=== PATIENT | female | born 1950 | race Caucasian/White ===

== ENCOUNTER → 2017-10-29 | Outpatient (CLI) | payer OTHER ==
[~2017-10-29] MED LIST: ASPCH81X PO; CHOL1000 PO; CMD5 PO; ESCI1TAB10 PO; FLUT0.15 NAE; MELATAB2 PO; MRLP17X PO; MULT-845 PO; NVLG SC; ROPI3TAB PO; SUMA100T15 PO; VNTHFA/IN INH; pain pump XX
--- NOTE | 2017-10-29 16:13 | DIAGNOSTIC IMAGING REPORT ---
LEFT KNEE 2 VIEWS HISTORY: LEFT KNEE PAIN COMPARISON: None. FINDINGS: There is no fracture or dislocation. Soft tissues are unremarkable. No radiopaque foreign bodies. No knee effusion. Mild cartilage space narrowing within the medial compartment of the left knee with small marginal osteophytes. IMPRESSION: No fractures. Mild osteoarthritis within the medial compartment. Electronically signed by: Kaden Billingsley M.D. 10/29/2017 4:12 PM Dictated Date/Time: 10/29/2017 4:09 PM
== END | disposition home or self-care (01) ==
LOC: C.RADBC 15:28
PROVIDERS: ATTEND Physician Assistant Medical
DX: M17.12 Unilateral primary osteoarthritis, left knee (principal)

== ENCOUNTER → 2017-12-30 | Day surgery (SDC) | payer OTHER ==
[2017-12-14 07:56] VITALS: Ht 160 cm; Wt 84.1 kg
[2017-12-15 12:37] LABS: BASO % 0.5 %; BASO ABS # 0.03 K/uL (0-0.2); EOS % 1.5 %; EOS ABS # 0.09 K/uL (0-0.5); HEMATOCRIT 36.5 % (37-47); HEMOGLOBIN 11.7 g/dL (12.0-16.0); IG# 0.01 K/uL (0.00-0.02); LYMPH % 36.1 %; LYMPH ABS # 2.13 K/uL (1.2-3.4); MEAN CELL VOLUME 92.6 fL (80-100); MEAN CORPUSCULAR HEMOGLOBIN 29.7 pg (25-34); MEAN CORPUSCULAR HGB CONC 32.1 g/dl (32-36); MEAN PLATELET VOLUME 10.3 fL (7.4-10.4); MONO ABS # 0.59 K/uL (0.11-0.59); NEUT % 51.7 %; NEUT ABS # 3.05 K/uL (1.4-6.5); PLATELET COUNT 254 K/uL (130-400); RED CELL DISTRIBUTION WIDTH SD 47.5 fL (36.4-46.3)
[2017-12-15 13:27] LABS: CALCIUM 9.1 mg/dl (8.5-10.1); CREATININE 0.84 mg/dl (0.60-1.20); POTASSIUM 4.3 mmol/L (3.5-5.1)
[~2017-12-30] VITALS: Ht 160 cm; Wt 84.1 kg
[~2017-12-30] MED LIST changes: +ATOR10TA82 PO; +CEFAZOLIN 2000MG IV PUSH 10 ML IV SCH; -CMD5 PO; +DEXAMETHASONE SOD INJ 4 MG/ML VIAL ONE; -ESCI1TAB10 PO; +EpHEDrine SULFATE INJ 50 MG/ML AMP IV PRN; +EpINEphrine INJ 1MG/ML AMP 1 MG/ML AMP ONE; +FENTANYL CITRATE INJ 50 MCG/1 ML 2 ML VIAL ONE; +HYDR-5688 PO; +HYDROCODONE/ACETAMOPHEN 5/325MG TAB PO PRN; +HYDROmorphone INJ 1 MG/ML SYR IV PRN; +INSDGI SC; +KETOROLAC TROMETHAMINE 30 MG/ML VIAL ONE; +LACTATED RINGER'S 1000ML 1,000 ML IV SCH; +LIDOCAINE HCL 2% 2 ML VIAL (20MG/ML) ONE; +LIFI5DRO OPB; +LISI-461 PO; +MAGN1TAB41 PO; +METF-384 PO; +MIDAZOLAM HCL 1 MG/ML 2ML VIAL ONE; -MRLP17X PO; +OMEP20TA PO; +ONDANSETRON INJ 2 MG/ML 2 ML VIAL IV PRN; +ONDANSETRON INJ 2 MG/ML 2 ML VIAL ONE; +POLY335019 PO; +PROPOFOL IV EMULSION 10 MG/ML 20 ML VIAL IV ONE; +ROPIVACAINE 0.5% 5 MG/ML 30 ML VIAL ONE; +SODIUM CHLORIDE 0.9% 1000ML 1,000 ML IV SCH; -SUMA100T15 PO; +SUMA100T16 PO; +TIMO0.5S2 OPB; +WARF5TAB7 PO
[2017-12-30 07:55] LABS: PTT PATIENT 23.3 SECONDS (21.0-31.0)
--- NOTE | 2017-12-30 08:02 | History & Physical Bridge Note ---
H&P Re-Evaluation Bridge Note: I have examined the patient, reviewed the History & Physical and in the interval since the performance of the History & Physical I have noted the following changes of clinical significance: No changes noted
--- NOTE | 2017-12-30 08:45 | [facility] Post Operative Brief Note ---
Immediate Operative Summary Operative Date Dec 30, 2017. Pre-Operative Diagnosis Torn Medial Meniscus Left Knee Post-Operative Diagnosis None Procedure(s) Performed Left Knee Arthroscopy, Partial Medial Meniscectomy, Chondroplasty Surgeon Dr. Ty Young Apartment Leasing Manager Surgeon(s) Lucinda Dickson PA-C Estimated Blood Loss 5 cc Findings Consistent with Post-Op Diagnosis Specimens None Anesthesia Type General Complication(s) none Disposition Disposition: Recovery Room / PACU
--- NOTE | 2017-12-30 08:53 | Discharge Instructions-SurgCtr ---
Discharge Instructions Date of Service Dec 30, 2017. Visit Reason for Visit: Left Knee Current Tear Medial Cartilage;M25.562 Discharge Discharge Diagnosis / Problem: SAME ABOVE Discharge Goals Goal(s): Decrease discomfort, Improve function Medications Stopped Medications Name(s): metformin last dose wednesday and coumadin stopped 12/24 Restart Stopped Medication(s): MAY RESTART 12/30/2017 Activity Recommendations Activity Limitations: as noted below Lifting Limitations: gradually increase as tolerated Exercise/Sports Limitations: gradually increase as tolerated Driving or Machine Use: resume 1 day after discharge Anesthesia . Post Anesthesia Instructions: If you have had General Anesthesia or IV Sedation: * Do not drive today. * Resume driving when surgeon permits. * Do not make important decisions or sign legal documents today. * Call surgeon for: 1. Temperature elevations greater than 101 degrees F. 2. Uncontrollable pain. 3. Excessive bleeding. 4. Persistent nausea and vomiting. 5. Medication intolerance (nausea, vomiting or rash). * For nausea and vomiting use only clear liquids such as: tea, soda, bouillon until nausea subsides, then gradually increase diet as tolerated. * If you have any concerns or questions, call your surgeon's office. If physician is unavailable and it is an emergency, call 911 or go to the nearest emergency room. . Instructions / Follow-Up Instructions / Follow-Up MEDICATIONS: * Resume previous medications unless instructed otherwise by your surgeon. * Always take pain medication on a full stomach or with food to avoid upset stomach. * Do not drink alcohol or drive while taking narcotics. * Ibuprofen or Tylenol may be taken if narcotic not needed. SPECIAL CARE INSTRUCTIONS: __ None _X_ Keep extremity elevated and iced x 48 hours; apply ice 20-30 minutes 8-10 times/day. May remove at night. _X_ Crutches _X_ May discard when able __ Brace/Post-op shoe __ 24 hrs/day __ Remove at night _X_ Dressing __ Maintain until seen in office, may shower with plastic over site _X_ Remove dressings in 24-48 hours and then may shower _X_ Cover incisions with band-aids after showering __ Do not remove steri-strips Call physician if chills or temperature rises above 102 degrees or pain unrelieved by prescribed pain medications. Office [phone] Diet Recommendations Home Diet: no limitations Procedures Procedures Performed: Left Knee Arthroscopy, Partial Medial Meniscectomy, Chondroplasty Pending Studies Studies pending at discharge: no Medical Emergencies . Who to Call and When: Medical Emergencies: If at any time you feel your situation is an emergency, please call 911 immediately. . Non-Emergent Contact Non-Emergency issues call your: Primary Care Provider Call Non-Emergent contact if: you have a fever, temperature is above 101.5 . . "Provider Documentation" section prepared by Benjamin Dickson. .
--- NOTE | 2017-12-30 08:55 | OPERATIVE REPORT ---
DATE OF OPERATION: 12/30/2017 PREOPERATIVE DIAGNOSES: Medial meniscal tear and osteoarthritis of the left knee. POSTOPERATIVE DIAGNOSES: Same. PROCEDURE: Left knee diagnostic arthroscopy with partial medial meniscectomy and medial chondroplasty. SURGEON: Dr. Edil Young. AIRCRAFT ENGINE INSTALLER: Charles Dickson PA-C, whose assistance was necessary for positioning of the leg and helping with instrumentation and closure. ANESTHESIA: General. COMPLICATIONS: None. CONDITION: Stable to PACU. INDICATIONS: Tanner is a pleasant 67-year-old female who has been having a 3-month history of left knee pain. She twisted her knee and all of her pain was located along the medial joint line. She is unable to have an MRI because of a pacemaker. After 3 months of conservative treatment, she elected to proceed with arthroscopy. DESCRIPTION OF PROCEDURE: On 12/30/2017, she arrived at [facility] for the above procedure. She was seen in the preoperative holding area and the operative extremity was identified and signed. She was given a preoperative antibiotic and taken back to the operating room, laid on the table in supine position and put under general anesthesia. The left knee was then prepped and draped in sterile fashion. Time-out was done and the patient's operative extremity was properly identified. A scope was introduced into the lateral parapatellar portal. Diagnostic arthroscopy showed some grade 3 chondral changes of the distal medial femoral condyle. The tibia looked okay. There was a horizontal tear of the medial meniscus. It was a kind of flipped underneath itself. A medial parapatellar portal was made under direct visualization. A shaver and a biter were used to remove the inferior flap of the horizontal tear. The meniscus was probed and felt to be stable. A chondroplasty was done of any of the loose cartilage fragments of the distal medial femoral condyle. The scope was then brought into the trochlea. ACL and PCL were intact. The scope was brought into the lateral compartment. There was no meniscus or cartilage damage laterally. The knee was brought into extension and the trochlea and the patella were intact. The patella tracked in the center of the trochlea. The scope was then placed in the medial parapatellar portal. Repeat diagnostic arthroscopy showed no additional pathology. Arthroscopic instruments were removed from the knee. Portal sites were closed with 3-0 nylon. The knee was then injected with 30 mL of Marcaine with Toradol and morphine. She was then taken to the postanesthesia care unit in stable condition. She tolerated the procedure well. I attest to the content of the Intraoperative Record and any orders documented therein. Any exception s are noted below.
[2017-12-30] MEDS: FENTANYL CITRATE INJ 50 MCG/1 ML 2 ML VIAL IV PRN ×3 (09:25→09:40)
[2017-12-30 09:58] VITALS: TEMP 36.8
--- NOTE | 2017-12-30 10:39 | Anesthesia Progress Nt - [facility] ---
Anesthesia Post Op Note Date & Time Dec 30, 2017 at 10:39 Vital Signs Pain Intensity: 5.0 Vital Signs Past 12 Hours Date Time Temp Pulse Resp B/P (MAP) Pulse Ox O2 Delivery O2 Flow Rate FiO2 12/30/17 09:58 36.8 64 20 153/75 (101) 95 Room Air 12/30/17 09:56 131/82 12/30/17 09:52 63 21 90 12/30/17 09:52 62 21 12/30/17 09:51 153/75 12/30/17 09:48 62 21 99 12/30/17 09:48 62 21 12/30/17 09:47 36.6 60 12 153/75 93 Room Air 12/30/17 09:46 128/115 12/30/17 09:43 66 17 100 12/30/17 09:43 63 17 12/30/17 09:41 146/74 12/30/17 09:38 69 20 96 12/30/17 09:38 71 20 12/30/17 09:36 133/81 12/30/17 09:33 66 14 99 12/30/17 09:33 65 14 12/30/17 09:32 143/67 12/30/17 09:28 63 14 12/30/17 09:28 65 14 92 12/30/17 09:26 140/61 12/30/17 09:23 64 15 12/30/17 09:23 64 15 95 12/30/17 09:21 138/58 12/30/17 09:18 68 20 12/30/17 09:18 69 20 96 12/30/17 09:16 149/74 12/30/17 09:13 66 19 12/30/17 09:13 67 19 97 12/30/17 09:12 142/125 12/30/17 09:08 68 15 12/30/17 09:08 67 15 95 12/30/17 09:07 127/86 12/30/17 09:03 58 14 12/30/17 09:03 58 14 97 12/30/17 09:01 123/64 12/30/17 08:58 59 17 12/30/17 08:58 60 17 97 12/30/17 08:56 123/66 12/30/17 08:53 60 15 12/30/17 08:53 60 15 96 12/30/17 08:52 59 15 12/30/17 08:52 58 15 96 12/30/17 08:51 126/70 12/30/17 08:48 129/70 12/30/17 08:47 36.2 62 16 129/70 95 Mask 6 12/30/17 07:14 37.0 59 20 159/69 (99) 95 Room Air Notes Mental Status: alert / awake / arousable, participated in evaluation Pt Amnestic to Procedure: Yes Nausea / Vomiting: adequately controlled Pain: adequately controlled Airway Patency, RR, SpO2: stable & adequate BP & HR: stable & adequate Hydration State: stable & adequate Anesthetic Complications: no major complications apparent
[2017-12-30 10:43] VITALS: BP 123/69; PULSE 67; O2SAT 96
== END | disposition home or self-care (01) ==
LOC: X.SURG 06:50
PROVIDERS: ATTEND Orthopaedic Surgery
DX: S83.242A Other tear of medial meniscus, current injury, left knee, initial encounter (principal); X50.1XXA Overexertion from prolonged static or awkward postures, initial encounter; M06.9 Rheumatoid arthritis, unspecified

== ENCOUNTER → 2018-03-02 | Outpatient (CLI) | payer OTHER ==
[~2018-03-02] MED LIST changes: -CEFAZOLIN 2000MG IV PUSH 10 ML IV SCH; -DEXAMETHASONE SOD INJ 4 MG/ML VIAL ONE; -EpHEDrine SULFATE INJ 50 MG/ML AMP IV PRN; -EpINEphrine INJ 1MG/ML AMP 1 MG/ML AMP ONE; -FENTANYL CITRATE INJ 50 MCG/1 ML 2 ML VIAL ONE; -HYDROCODONE/ACETAMOPHEN 5/325MG TAB PO PRN; -HYDROmorphone INJ 1 MG/ML SYR IV PRN; -KETOROLAC TROMETHAMINE 30 MG/ML VIAL ONE; -LACTATED RINGER'S 1000ML 1,000 ML IV SCH; -LIDOCAINE HCL 2% 2 ML VIAL (20MG/ML) ONE; -MIDAZOLAM HCL 1 MG/ML 2ML VIAL ONE; -ONDANSETRON INJ 2 MG/ML 2 ML VIAL IV PRN; -ONDANSETRON INJ 2 MG/ML 2 ML VIAL ONE; -PROPOFOL IV EMULSION 10 MG/ML 20 ML VIAL IV ONE; -ROPI3TAB PO; -ROPIVACAINE 0.5% 5 MG/ML 30 ML VIAL ONE; -SODIUM CHLORIDE 0.9% 1000ML 1,000 ML IV SCH
[2018-03-02 08:28] LABS: PTT PATIENT 23.2 SECONDS (21.0-31.0)
== END | disposition home or self-care (01) ==
LOC: C.LAB 08:02
PROVIDERS: ATTEND Physician Assistant
DX: Z01.812 Encounter for preprocedural laboratory examination (principal); M46.1 Sacroiliitis, not elsewhere classified

== ENCOUNTER → 2018-04-09 | Outpatient (CLI) | payer OTHER ==
[2018-04-09 13:24] LABS: CREATININE 0.93 mg/dl (0.60-1.20)
== END | disposition home or self-care (01) ==
LOC: C.LAB 12:34
PROVIDERS: ATTEND Radiology Diagnostic Radiology
DX: Z01.812 Encounter for preprocedural laboratory examination (principal)

== ENCOUNTER → 2018-04-11 | Outpatient (CLI) | payer OTHER ==
[~2018-04-11] MED LIST changes: +GADAVIST IV PRN
--- NOTE | 2018-04-11 14:13 | DIAGNOSTIC IMAGING REPORT ---
MRI OF THE LUMBAR SPINE WITH AND WITHOUT CONTRAST CLINICAL HISTORY: Post laminectomy syndrome. Low back pain radiating into left lower extremity. COMPARISON STUDY: Lumbar spine MRI August 23, 2014. TECHNIQUE: Utilizing a 1.5 Milana magnet and dedicated coil, multiplanar, multiecho imaging of the lumbar spine was performed before and after uneventful IV administration of 8.5 mL of Gadavist. FINDINGS: For purposes of numbering on this exam, the L5-S1 disc space is assigned to axial image 28 of 37. The patient is status post L2-S1 fusion and laminectomy. Postoperative appearance is unchanged as MRI of August 23, 2014. No compression fracture is present. Discogenic changes at the L1-L2 level are again noted. There is no intracanalicular mass or fluid collection. There is no abnormal enhancement within the lumbar canal. The conus terminates at the mid L1 level. Paravertebral soft tissues are unremarkable. L1-2: Small broad-based disc bulge is noted. This results in mild central canal narrowing. This is unchanged since MRI of August 23, 2014. The neural foramen are patent. L2-3: The central canal and neural foramen are patent. L3-4: The central canal and right neural foramen are patent. Mild left foraminal narrowing due to ill-defined enhancing soft tissue is unchanged since MRI of November 22, 2014. L4-5: Central canal neural foramen are patent. L5-S1: The central canal and neural foramen are patent. IMPRESSION: 1. No change since previous exam of August 23, 2014. 2. Status post posterior decompression and fusion from L2 through S1. 3. No change in a small disc bulge at L1-L2 that results in mild central canal narrowing. 4. Ill-defined area of soft tissue enhancement within the left L3-L4 neural foramen is unchanged. This likely reflects scar tissue. Electronically signed by: Reynaldo Pena M.D. 04/11/2018 2:11 PM Dictated Date/Time: 04/11/2018 2:01 PM
== END | disposition home or self-care (01) ==
LOC: C.MRIBC 12:41
PROVIDERS: ATTEND Physician Assistant
DX: M96.1 Postlaminectomy syndrome, not elsewhere classified (principal); Z98.1 Arthrodesis status

== ENCOUNTER → 2018-04-21 | Outpatient (CLI) | payer OTHER ==
[~2018-04-21] MED LIST changes: -GADAVIST IV PRN
== END | disposition home or self-care (01) ==
LOC: C.LAB 08:00
PROVIDERS: ATTEND Physician Assistant
DX: Z01.812 Encounter for preprocedural laboratory examination (principal); Z79.01 Long term (current) use of anticoagulants

== ENCOUNTER 2020-07-08 23:48 | Observation (INO) ==
[2020-07-09] MEDS ORDERED: SODIUM CHLORIDE 0.9% 1000ML 1,000 ML IV ONE (00:19)
[2020-07-09] MEDS ORDERED: ONDANSETRON INJ 2 MG/ML 2 ML VIAL IV STA ×2 (00:19→03:05)
--- NOTE | 2020-07-09 00:36 | Emergency Department Note ---
History of Present Illness General Chief complaint: Illness Stated complaint: SICK,CLAMMY,SWEATY,RESTLESS Time Seen by Provider: 07/09/20 00:04 Source: patient Mode of arrival: ambulatory Limitations: no limitations History of Present Illness Provider complaint: nausea, vomiting, UTI symptoms Maximum Pain Intensity: 0 Associated symptoms: + fever/chills, + loss of appetite, + malaise and + nausea/vomiting; no shortness of breath and no syncope Treatments prior to arrival: none This is a 70-year-old female who presents with nausea/vomiting, dysuria, fatigue, and fevers. Patient states several days ago she began noticing slight discomfort with urination and darker colored urine and was concerned for an evolving urinary tract infection. Patient states she began drinking increased water and cranberry juice. Patient states she is continued to feel worse with fatigue, subjective fevers and chills, poor appetite, and today began having nausea and vomiting. Patient denies chest pain or trouble breathing. Patient denies any known sick contacts. Patient denies any contact with any coronavirus positive individual. who lives with her has not been sick. Patient does admit to back pain, however states she has chronic back pain from multiple surgeries and an indwelling pain pump, and feels her pain is not any worse than her normal. Patient denies any falls or injury, no change in bowel movements. Patient denies any swelling in her legs. Patient states she has had UTIs prior, however they are not a frequent or recurrent problem. Pt seen during a time of high acuity and national emergency pandemic while wearing PPE. Home Medications Home Medications Medication Instructions Recorded Confirmed Type albuterol sulfate 90 mcg/actuation 2 puffs INH Q4 PRN 09/02/18 07/09/20 History aerosol inhaler aspirin 81 mg tablet,delayed 81 mg PO DAILY 09/02/18 07/09/20 History release atorvastatin 10 mg tablet 10 mg PO DAILY 09/02/18 07/09/20 History cholecalciferol (vitamin D3) 25 5,000 units PO DAILY 09/02/18 07/09/20 History mcg (1,000 unit) capsule insulin aspart U-100 100 unit/mL See Rx Instructions .ROUTE 09/02/18 07/09/20 History subcutaneous cartridge .COMPLEX ml insulin glargine 100 unit/mL (3 14 units SQ HS ml 09/02/18 07/09/20 History mL) subcutaneous pen lifitegrast 5 % eye drops in a 1 drops OPB BID ea 09/02/18 07/09/20 History dropperette lisinopril 10 mg tablet 10 mg PO DAILY 09/02/18 07/09/20 History magnesium oxide 400 mg PO DAILY cap 09/02/18 07/09/20 History metformin 1,000 mg tablet 1,000 mg PO BID 09/02/18 07/09/20 History multivitamin 1 cap PO DAILY 09/02/18 07/09/20 History omeprazole 20 mg capsule,delayed 20 mg PO DAILY 09/02/18 07/09/20 History release polyethylene glycol 3350 17 17 gm PO DAILY gm 09/02/18 07/09/20 History gram/dose oral powder sumatriptan succinate 100 mg tablet 100 mg PO .use as directed PRN tab 09/02/18 07/09/20 History timolol maleate 0.5 % once daily 1 drops OPL QAM ml 09/02/18 07/09/20 History eye drops warfarin 5 mg tablet 2.5 - 5 mg PO QPM tab 09/02/18 07/09/20 History Synchromed Pump Refill See Rx Instructions .ROUTE .COMPLEX 07/09/20 07/09/20 History artifi.tears(hypromellose)(PF) 1 drp OPHTHALMIC (EYE) QID PRN 07/09/20 07/09/20 History escitalopram oxalate 20 mg PO DAILY 07/09/20 07/09/20 History prednisolone acetate 1 drp OPR QID 07/09/20 07/09/20 History promethazine 25 mg PO Q6 PRN 07/09/20 07/09/20 History Allergies Allergy/AdvReac Type Severity Reaction Status Date / Time atropine Allergy Mild ITCHING Verified 07/09/20 02:15 AND HIVES Sulfa (Sulfonamide Allergy Mild MODERATE Verified 07/09/20 02:15 Antibiotics) RASH nickel Allergy Unknown RASH Verified 07/09/20 02:15 naloxone AdvReac Intermediate N/V, Verified 07/09/20 02:15 HALLUCINATIONS, EXTREME ANXIETY,JAW CLENCHING Past Med/Surg History Medical History Cervical postlaminectomy syndrome (Chronic) Chronic pain of left knee (Chronic) Depression (Chronic) Lumbar postlaminectomy syndrome (Chronic) Migraine (Chronic) Monoclonal paraproteinemia (Chronic) "MGUS" Presence of intrathecal pump (Chronic) Primary central sleep apnea (Chronic) Pulmonary embolism (Resolved) Retinal vascular disorder (Chronic 01/29/12) Sacroiliitis (Chronic) Severe dizziness (Resolved) SOB (shortness of breath) (Resolved) Surgical History H/O colonoscopy (Resolved) H/O cystoscopy (Resolved) H/O elbow surgery (Resolved) H/O eye surgery (Resolved) History of carpal tunnel surgery (Resolved) History of hysterectomy (Resolved) S/P cervical spinal fusion (Resolved) S/P cholecystectomy (Resolved) S/P lumbar laminectomy (Resolved) Family History (Updated 07/09/20 @ 15:13 by Blas Loja DO) Father Coronary heart disease Social History Smoking Status: Never smoker Hx Alcohol Use: Yes (1-2x/month) Alcohol type: wine Hx Substance Use: No Preferred Language: Czech Communication Ability: Effective Sight Mounter Required: No Beliefs That Will Affect Care: None marital status: Current Living Situation: Spouse Other Information That Helps Us Care for You: No Feels Safe at Home: Yes Safety Concerns: Feels Safe At This Time Review of Systems See HPI for pertinent positives & negatives. and A total of 10 systems reviewed and were otherwise negative Physical Exam Vital Signs Vital Signs - 24 hr 07/08/20 23:52 07/09/20 01:06 07/09/20 01:08 Temperature 36.5 C Temperature Source Oral Pulse Rate 82 73 69 Pulse Rate from SpO2 Sensor 80 70 Respiratory Rate 20 14 15 Respiratory Effort / Characteristics Non-Labored Spontaneous Respiratory Depth Normal Blood Pressure 160/75 H 118/56 L Blood Pressure Mean 103 82 Pulse Oximetry 94 97 97 Oxygen Delivery Method Room Air Sepsis Recent Fever Within 48 Hours No Sepsis New/Unexplained Change in Mental Status No Sepsis Action Taken by Nursing No Action Required 07/09/20 01:15 07/09/20 01:30 07/09/20 01:31 Temperature Temperature Source Pulse Rate 73 70 72 Pulse Rate from SpO2 Sensor 70 72 Respiratory Rate 17 21 17 Respiratory Effort / Characteristics Respiratory Depth Blood Pressure 127/60 Blood Pressure Mean 67 Pulse Oximetry 96 97 Oxygen Delivery Method Room Air Sepsis Recent Fever Within 48 Hours Sepsis New/Unexplained Change in Mental Status Sepsis Action Taken by Nursing 07/09/20 02:03 07/09/20 02:04 07/09/20 02:05 Temperature Temperature Source Pulse Rate 83 79 80 Pulse Rate from SpO2 Sensor 78 81 Respiratory Rate 13 17 17 Respiratory Effort / Characteristics Respiratory Depth Blood Pressure 138/54 L Blood Pressure Mean 71 Pulse Oximetry 92 95 Oxygen Delivery Method Sepsis Recent Fever Within 48 Hours Sepsis New/Unexplained Change in Mental Status Sepsis Action Taken by Nursing 07/09/20 02:15 07/09/20 02:30 07/09/20 02:31 Temperature Temperature Source Pulse Rate 74 74 75 Pulse Rate from SpO2 Sensor 75 75 73 Respiratory Rate 20 14 14 Respiratory Effort / Characteristics Respiratory Depth Blood Pressure 141/69 H Blood Pressure Mean 96 Pulse Oximetry 93 90 91 Oxygen Delivery Method Sepsis Recent Fever Within 48 Hours Sepsis New/Unexplained Change in Mental Status Sepsis Action Taken by Nursing 07/09/20 02:45 07/09/20 03:02 07/09/20 03:03 Temperature Temperature Source Pulse Rate 80 83 80 Pulse Rate from SpO2 Sensor 80 86 80 Respiratory Rate 18 16 17 Respiratory Effort / Characteristics Respiratory Depth Blood Pressure 150/71 H Blood Pressure Mean 81 Pulse Oximetry 93 92 91 Oxygen Delivery Method Sepsis Recent Fever Within 48 Hours Sepsis New/Unexplained Change in Mental Status Sepsis Action Taken by Nursing 07/09/20 03:30 07/09/20 04:00 07/09/20 04:01 Temperature Temperature Source Pulse Rate 74 73 74 Pulse Rate from SpO2 Sensor 73 73 74 Respiratory Rate 16 16 17 Respiratory Effort / Characteristics Respiratory Depth Blood Pressure 130/66 150/70 H Blood Pressure Mean 90 113 Pulse Oximetry 99 97 97 Oxygen Delivery Method Room Air Sepsis Recent Fever Within 48 Hours Sepsis New/Unexplained Change in Mental Status Sepsis Action Taken by Nursing 07/09/20 04:15 07/09/20 04:30 07/09/20 04:31 Temperature Temperature Source Pulse Rate 73 72 77 Pulse Rate from SpO2 Sensor 73 72 76 Respiratory Rate 16 24 19 Respiratory Effort / Characteristics Respiratory Depth Blood Pressure 137/70 Blood Pressure Mean 105 Pulse Oximetry 96 97 97 Oxygen Delivery Method Sepsis Recent Fever Within 48 Hours Sepsis New/Unexplained Change in Mental Status Sepsis Action Taken by Nursing 07/09/20 04:45 07/09/20 05:00 07/09/20 05:01 Temperature Temperature Source Pulse Rate 80 69 69 Pulse Rate from SpO2 Sensor 80 69 69 Respiratory Rate 12 20 16 Respiratory Effort / Characteristics Respiratory Depth Blood Pressure 137/67 Blood Pressure Mean 90 Pulse Oximetry 100 98 98 Oxygen Delivery Method Sepsis Recent Fever Within 48 Hours Sepsis New/Unexplained Change in Mental Status Sepsis Action Taken by Nursing GENERAL: alert, ill appearing, well nourished, no distress, non-toxic EYE EXAM: normal conjunctiva, PERRL and EOM's grossly intact OROPHARYNX: no exudate, no erythema, lips, buccal mucosa, and tongue normal and mucous membranes are moist NECK: supple, no nuchal rigidity, no adenopathy, non-tender LUNGS: Clear to auscultation. Normal chest wall mechanics, no w/r/r HEART: no murmurs, S1 normal and S2 normal ABDOMEN: abdomen soft, non-tender, normo-active bowel sounds, no masses, no rebound or guarding. BACK: Back is symmetrical on inspection and there is no deformity, no midline tenderness, no CVA tenderness. SKIN: no rashes and no bruising UPPER EXTREMITIES: upper extremities are grossly normal. FROM, nml pulses b/l. LOWER EXTREMITIES: No pitting edema. FROM, nml pulses b/l. NEURO EXAM: Normal sensorium, cranial nerves II-XII grossly intact, normal speech, no gross weakness of arms, no gross weakness of legs. Gross sensation intact. Course Course 0250: Pt and updated on results. In agreement with plan for additional inpatient monitoring. Of note, pt does intermittently drop sats to 88%. With coaching to take a few deep breaths, she recovers to the low to mid 90's. Denies feeling SOB. No increased WOB. 0400: Case discussed with Dr. Ramires. He would like additional coronavirus testing. Administered Medications Aspirin (Ecotrin Ectab) 81 mg PO DAILY [facility] Stop: 08/08/20 08:59 Last Admin: 07/09/20 09:01 Dose: 81 mg Documented by: [id number] Atorvastatin Calcium (Lipitor) 10 mg PO DAILY [facility] Stop: 08/08/20 08:59 Last Admin: 07/09/20 09:01 Dose: 10 mg Documented by: [id number] Escitalopram Oxalate (Lexapro Tab) 20 mg PO DAILY [facility] Stop: 08/08/20 08:59 Last Admin: 07/09/20 09:01 Dose: 20 mg Documented by: [id number] Sodium Chloride (Nss 1000ml) 1,000 mls @ 125 mls/hr IV .Q8H [facility] Stop: 08/08/20 08:00 Last Admin: 07/09/20 18:10 Dose: 125 mls/hr Documented by: [id number] Infusion: 07/09/20 16:58 Dose: 125 mls/hr Documented by: [id number] Admin: 07/09/20 08:58 Dose: 125 mls/hr Documented by: [id number] Ceftriaxone Sodium 2,000 mg/ (Dextrose) 70 mls @ 100 mls/hr IV DAILY [facility]; Protocol Stop: 07/16/20 08:59 Last Infusion: 07/09/20 09:42 Dose: 0 mls/hr Documented by: [id number] Admin: 07/09/20 08:59 Dose: 100 mls/hr Documented by: [id number] Doxycycline Hyclate 100 mg/ (Dextrose) 110 mls @ 50 mls/hr IV Q12H [facility] Stop: 07/16/20 08:59 Last Admin: 07/09/20 20:53 Dose: 50 mls/hr Documented by: [id number] Infusion: 07/09/20 11:15 Dose: 0 mls/hr Documented by: [id number] Admin: 07/09/20 08:59 Dose: 50 mls/hr Documented by: [id number] Insulin Aspart (Novolog Flexpen) 0 units SC ACHS [facility] Stop: 08/08/20 08:00 Last Admin: 07/09/20 20:55 Dose: Not Given Documented by: [id number] Cosigned by: [id number] Admin: 07/09/20 17:10 Dose: 2 units Documented by: [id number] Cosigned by: [id number] Admin: 07/09/20 13:03 Dose: 4 units Documented by: [id number] Cosigned by: [id number] Admin: 07/09/20 08:59 Dose: 4 units Documented by: [id number] Cosigned by: [id number] Insulin Glargine (Lantus Solostar Pen) 14 units SQ HS [facility] Stop: 08/08/20 20:59 Last Admin: 07/09/20 20:54 Dose: 14 units Documented by: [id number] Cosigned by: [id number] Lisinopril (Zestril) 10 mg PO DAILY [facility] Stop: 08/08/20 08:59 Last Admin: 07/09/20 09:00 Dose: 10 mg Documented by: [id number] Magnesium Oxide (Mag-Ox) 400 mg PO DAILY [facility] Stop: 08/08/20 08:59 Last Admin: 07/09/20 09:01 Dose: 400 mg Documented by: [id number] Miscellaneous (Order Awaiting Action) 1 ea N/A QS [facility] Stop: 08/08/20 15:59 Last Admin: 07/09/20 15:32 Dose: Not Given Documented by: [id number] Multivitamins (Multivitamin Tab) 1 tab PO QAM [facility] Stop: 08/08/20 08:59 Last Admin: 07/09/20 09:01 Dose: 1 tab Documented by: [id number] Nitroglycerin (Nitrostat) 0.4 mg SL PRN PRN PRN Reason: Chest Pain Stop: 08/08/20 10:10 Last Admin: 07/09/20 17:08 Dose: 0.4 mg Documented by: [id number] Nitroglycerin (Nitro-Bid 2%) 0.5 inch EXT Q6H [facility] Stop: 08/08/20 15:59 Last Admin: 07/09/20 21:00 Dose: 0.5 inch Documented by: [id number] Admin: 07/09/20 15:32 Dose: 0.5 inch Documented by: [id number] Ondansetron HCl (Zofran) 4 mg IV Q6H PRN PRN Reason: Nausea Stop: 08/08/20 08:00 Last Admin: 07/09/20 09:55 Dose: 4 mg Documented by: [id number] Pantoprazole Sodium (Protonix) 40 mg PO DAILY [facility] Stop: 08/08/20 08:59 Last Admin: 07/09/20 09:01 Dose: 40 mg Documented by: [id number] Polyethylene Glycol (Miralax Powder Packet) 17 gm PO DAILY [facility] Stop: 08/08/20 08:59 Last Admin: 07/09/20 09:00 Dose: 17 gm Documented by: [id number] Prednisolone Acetate (Pred Forte 1%) 1 drops OP QID [facility] Stop: 08/08/20 12:59 Last Admin: 07/09/20 20:55 Dose: 1 drops Documented by: [id number] Admin: 07/09/20 17:08 Dose: 1 drops Documented by: [id number] Admin: 07/09/20 13:04 Dose: 1 drops Documented by: [id number] Timolol Maleate (Timoptic 0.5% Oph) 1 drops OPL QAM [facility] Stop: 08/08/20 08:59 Last Admin: 07/09/20 09:01 Dose: 1 drops Documented by: [id number] Vitamin D (Vitamin D3) 5,000 units PO DAILY [facility] Stop: 08/08/20 08:59 Last Admin: 07/09/20 09:00 Dose: 5,000 units Documented by: [id number] Discontinued Medications Sodium Chloride (Nss 1000ml) 1,000 mls @ 999 mls/hr IV .Q1H1M ONE Stop: 07/09/20 01:19 Last Infusion: 07/09/20 02:05 Dose: 0 mls/hr Documented by: [id number] Admin: 07/09/20 01:03 Dose: 999 mls/hr Documented by: [id number] Cefepime HCl (Maxipime) 2,000 mg in 20 mls @ 5 mls/min IV NOW STA Stop: 07/09/20 02:05 Last Admin: 07/09/20 02:16 Dose: 5 mls/min Documented by: [id number] Sodium Chloride (Nss 1000ml) 1,000 mls @ 250 mls/hr IV .Q4H [facility] Stop: 08/08/20 02:29 Last Admin: 07/09/20 08:03 Dose: Not Given Documented by: [id number] Infusion: 07/09/20 06:46 Dose: 0 mls/hr Documented by: [id number] Admin: 07/09/20 02:44 Dose: 250 mls/hr Documented by: [id number] Acetaminophen (Ofirmev) 1,000 mg in 100 mls @ 400 mls/hr IV NOW STA Stop: 07/09/20 06:31 Last Infusion: 07/09/20 06:46 Dose: 0 mls/hr Documented by: [id number] Admin: 07/09/20 06:24 Dose: 400 mls/hr Documented by: [id number] Prochlorperazine (Compazine) 1 mls @ 1 mls/min IV ONE ONE Stop: 07/09/20 06:18 Last Admin: 07/09/20 06:24 Dose: 1 mls/min Documented by: [id number] Lorazepam (Ativan) 0.25 mg in 0.5 mls @ 0.5 mls/min IV NOW STA Stop: 07/09/20 06:18 Last Admin: 07/09/20 06:23 Dose: 0.5 mls/min Documented by: [id number] Phytonadione 2.5 mg/ Sodium (Chloride) 50.25 mls @ 100.5 mls/hr IV ONE ONE Stop: 07/09/20 17:14 Last Infusion: 07/09/20 18:10 Dose: 0 mls/hr Documented by: [id number] Admin: 07/09/20 17:07 Dose: 100.5 mls/hr Documented by: [id number] Ioversol (Optiray 320 100ml) 100 ml IV ONCE ONE Stop: 07/09/20 02:13 Last Admin: 07/09/20 02:13 Dose: 93 ml Documented by: [id number] Metoprolol Tartrate (Lopressor) 25 mg PO ONE ONE Stop: 07/09/20 15:26 Last Admin: 07/09/20 15:45 Dose: 25 mg Documented by: [id number] Morphine Sulfate (Morphine Sulfate) 2 mg IV ONE ONE Stop: 07/09/20 10:12 Last Admin: 07/09/20 10:21 Dose: 2 mg Documented by: [id number] Nitroglycerin (Nitrostat) 0.3 mg SL ONE STA Stop: 07/09/20 14:51 Last Admin: 07/09/20 15:02 Dose: 0.3 mg Documented by: [id number] Ondansetron HCl (Zofran) 4 mg IV NOW STA Stop: 07/09/20 00:20 Last Admin: 07/09/20 01:03 Dose: 4 mg Documented by: [id number] Ondansetron HCl (Zofran) 4 mg IV NOW STA Stop: 07/09/20 03:06 Last Admin: 07/09/20 03:07 Dose: 4 mg Documented by: [id number] Medical Decision Making Differential Diagnosis Gastroenteritis, food borne illness, infections, appendicitis, diverticulitis, inflammatory bowel disease, obstruction, GI bleed, biliary pathology, volvulus, UTI, pyelonephritis, sepsis as well as other pathologies. Medical Records Attestation: I reviewed the patient's medical records. Home Medications Current Medication List: was personally reviewed by me Laboratory Data Attestation: I reviewed the patient's lab results. Result diagrams: 07/09/20 00:54 07/09/20 00:54 Lab Results 07/09/20 07/09/20 07/09/20 Range/Units 00:54 00:54 00:54 WBC 9.83 (4.8-10.8) K/uL RBC 3.95 L (4.2-5.4) M/uL Hgb 10.9 L (12.0-16.0) g/dL Hct 33.1 L (37-47) % MCV 83.8 (80-100) fL MCH 27.6 (25-34) pg MCHC 32.9 (32-36) g/dL RDW Std Deviation 51.5 H (36.4-46.3) fL RDW Coeff of Angela 16.7 H (11.5-14.5) % Plt Count 442 H (130-400) K/uL MPV 9.6 (7.4-10.4) fL Immature Gran % (Auto) 0.4 % Neut % (Auto) 74.9 % Lymph % (Auto) 18.3 % Hardin % (Auto) 5.4 % Eos % (Auto) 0.8 % Baso % (Auto) 0.2 % Neut # (Auto) 7.36 H (1.4-6.5) K/uL Lymph # (Auto) 1.80 (1.2-3.4) K/uL Hardin # (Auto) 0.53 (0.11-0.59) K/uL Eos # (Auto) 0.08 (0-0.5) K/uL Baso # (Auto) 0.02 (0-0.2) K/uL Immature Gran # (Auto) 0.04 H (0.00-0.02) K/uL PT Cancelled INR Cancelled APTT Cancelled PTT Ratio Cancelled Sodium 136 (136-145) mmol/L Potassium 3.5 (3.5-5.1) mmol/L Chloride 102 (98-107) mmol/L Carbon Dioxide 29 (21-32) mmol/L Anion Gap 5.0 (3-11) BUN 11 (7-18) mg/dl Creatinine 0.84 (0.6-1.2) mg/dl Est Cr Clr Drug Dosing 62.8 ml/min Est GFR ( Amer) 81.0 Est GFR (Non-Af Amer) 69.9 BUN/Creatinine Ratio 12.8 (10-20) Glucose 111 H (70-99) mg/dl Lactate (0.4-2.0) mmol/L Calcium 9.3 (8.5-10.1) mg/dl Magnesium 1.9 (1.8-2.4) mg/dl Total Bilirubin 0.5 (0.2-1) mg/dl AST 52 H (15-37) U/L ALT 63 (12-78) U/L Alkaline Phosphatase 235 H (45-117) U/L Troponin I < 0.015 (0-0.045) ng/ml Total Protein 8.4 H (6.4-8.2) gm/dl Albumin 2.9 L (3.4-5.0) gm/dl Globulin 5.5 H (2.5-4.0) gm/dl Albumin/Globulin Ratio 0.5 L (0.9-2) Procalcitonin (0-0.5) ng/ml Urine Color Urine Appearance (Clear) Urine pH (4.5-7.5) Ur Specific [place] (1.000-1.030) Urine Protein (Negative) Urine Glucose (UA) (Negative) Urine Ketones (Negative) Urine Blood (Negative) Urine Nitrite (Negative) Urine Bilirubin (Negative) Urine Urobilinogen (Negative) Ur Leukocyte Esterase (Negative) Urine WBC (Auto) (0-5) /hpf Urine RBC (Auto) (0-4) /hpf U Hyaline Cast (Auto) (0-5) /lpf U Epithel Cells (Auto) (0-5) /lpf Urine Bacteria (Auto) (Negative) Urine Mucus (None Prsent) COVID-19 Eval Order COVID-19 PCR (Negative) 07/09/20 07/09/20 07/09/20 Range/Units 00:54 00:54 01:19 WBC (4.8-10.8) K/uL RBC (4.2-5.4) M/uL Hgb (12.0-16.0) g/dL Hct (37-47) % MCV (80-100) fL MCH (25-34) pg MCHC (32-36) g/dL RDW Std Deviation (36.4-46.3) fL RDW Coeff of Angela (11.5-14.5) % Plt Count (130-400) K/uL MPV (7.4-10.4) fL Immature Gran % (Auto) % Neut % (Auto) % Lymph % (Auto) % Hardin % (Auto) % Eos % (Auto) % Baso % (Auto) % Neut # (Auto) (1.4-6.5) K/uL Lymph # (Auto) (1.2-3.4) K/uL Hardin # (Auto) (0.11-0.59) K/uL Eos # (Auto) (0-0.5) K/uL Baso # (Auto) (0-0.2) K/uL Immature Gran # (Auto) (0.00-0.02) K/uL PT INR APTT PTT Ratio Sodium (136-145) mmol/L Potassium (3.5-5.1) mmol/L Chloride (98-107) mmol/L Carbon Dioxide (21-32) mmol/L Anion Gap (3-11) BUN (7-18) mg/dl Creatinine (0.6-1.2) mg/dl Est Cr Clr Drug Dosing ml/min Est GFR ( Amer) Est GFR (Non-Af Amer) BUN/Creatinine Ratio (10-20) Glucose (70-99) mg/dl Lactate 0.9 (0.4-2.0) mmol/L Calcium (8.5-10.1) mg/dl Magnesium (1.8-2.4) mg/dl Total Bilirubin (0.2-1) mg/dl AST (15-37) U/L ALT (12-78) U/L Alkaline Phosphatase (45-117) U/L Troponin I (0-0.045) ng/ml Total Protein (6.4-8.2) gm/dl Albumin (3.4-5.0) gm/dl Globulin (2.5-4.0) gm/dl Albumin/Globulin Ratio (0.9-2) Procalcitonin 0.24 (0-0.5) ng/ml Urine Color Dark Yellow Urine Appearance Cloudy A (Clear) Urine pH 7.5 (4.5-7.5) Ur Specific [place] 1.025 (1.000-1.030) Urine Protein Negative (Negative) Urine Glucose (UA) Negative (Negative) Urine Ketones Trace H (Negative) Urine Blood Negative (Negative) Urine Nitrite Negative (Negative) Urine Bilirubin Negative (Negative) Urine Urobilinogen Negative (Negative) Ur Leukocyte Esterase 1+ H (Negative) Urine WBC (Auto) 1-5 (0-5) /hpf Urine RBC (Auto) 0-4 (0-4) /hpf U Hyaline Cast (Auto) 0 (0-5) /lpf U Epithel Cells (Auto) >30 H (0-5) /lpf Urine Bacteria (Auto) Negative (Negative) Urine Mucus Present A (None Prsent) COVID-19 Eval Order COVID-19 PCR (Negative) 07/09/20 07/09/20 07/09/20 Range/Units 02:15 04:30 04:30 WBC (4.8-10.8) K/uL RBC (4.2-5.4) M/uL Hgb (12.0-16.0) g/dL Hct (37-47) % MCV (80-100) fL MCH (25-34) pg MCHC (32-36) g/dL RDW Std Deviation (36.4-46.3) fL RDW Coeff of Angela (11.5-14.5) % Plt Count (130-400) K/uL MPV (7.4-10.4) fL Immature Gran % (Auto) % Neut % (Auto) % Lymph % (Auto) % Hardin % (Auto) % Eos % (Auto) % Baso % (Auto) % Neut # (Auto) (1.4-6.5) K/uL Lymph # (Auto) (1.2-3.4) K/uL Hardin # (Auto) (0.11-0.59) K/uL Eos # (Auto) (0-0.5) K/uL Baso # (Auto) (0-0.2) K/uL Immature Gran # (Auto) (0.00-0.02) K/uL PT 49.2 H INR 5.1 H APTT 60.4 H* PTT Ratio 2.2 Sodium (136-145) mmol/L Potassium (3.5-5.1) mmol/L Chloride (98-107) mmol/L Carbon Dioxide (21-32) mmol/L Anion Gap (3-11) BUN (7-18) mg/dl Creatinine (0.6-1.2) mg/dl Est Cr Clr Drug Dosing ml/min Est GFR ( Amer) Est GFR (Non-Af Amer) BUN/Creatinine Ratio (10-20) Glucose (70-99) mg/dl Lactate (0.4-2.0) mmol/L Calcium (8.5-10.1) mg/dl Magnesium (1.8-2.4) mg/dl Total Bilirubin (0.2-1) mg/dl AST (15-37) U/L ALT (12-78) U/L Alkaline Phosphatase (45-117) U/L Troponin I (0-0.045) ng/ml Total Protein (6.4-8.2) gm/dl Albumin (3.4-5.0) gm/dl Globulin (2.5-4.0) gm/dl Albumin/Globulin Ratio (0.9-2) Procalcitonin (0-0.5) ng/ml Urine Color Urine Appearance (Clear) Urine pH (4.5-7.5) Ur Specific [place] (1.000-1.030) Urine Protein (Negative) Urine Glucose (UA) (Negative) Urine Ketones (Negative) Urine Blood (Negative) Urine Nitrite (Negative) Urine Bilirubin (Negative) Urine Urobilinogen (Negative) Ur Leukocyte Esterase (Negative) Urine WBC (Auto) (0-5) /hpf Urine RBC (Auto) (0-4) /hpf U Hyaline Cast (Auto) (0-5) /lpf U Epithel Cells (Auto) (0-5) /lpf Urine Bacteria (Auto) (Negative) Urine Mucus (None Prsent) COVID-19 Eval Order Covid19 Done at [facility] COVID-19 PCR NEGATIVE (Negative) Imaging Data My Impression: X-ray: I interpreted the following studies. Chest: A single view study of the chest was reviewed and was negative for cardiomegaly, effusion, pulmonary edema, or wide mediastinum. Right lower lobe infiltrate noted. Radiologist's Impression: CT abdomen pelvis with contrast: Comparison to August 04, 2009. Mild cardiomegaly. Lung bases are clear. Mild fatty infiltration of the liver. No focal liver lesion is seen. There is mild biliary duct dilatation post cholecystectomy with a common bile duct measuring 12 mm. The pancreas, spleen, adrenal glands, and kidneys appear unremarkable. Bowel loops are nondilated. No pneumoperitoneum, free fluid, or focal inflammatory changes are seen involving the bowel. The urinary bladder is empty and appears unremarkable. There is a baclofen pump projecting over the right lower pelvis. There is extensive surgical change post instrumentation and fusion from L2 through the sacrum. Hardware appears intact. There are moderate to severe degenerative changes in the lower thoracic and upper lumbar spine. Radiologist: Bg Orellana MD Blood Pressure Blood Pressure Findings: Elevated blood pressure MDM Narrative This is a 70-year-old female who presents from home after feeling worse over the last 3 days. Patient initially suspicious for urinary tract infection. Patient was ill-appearing on arrival although hemodynamically stable. Patient found to have likely pneumonia on chest x-ray, labs reassuring and CT abdomen pelvis unremarkable. Patient's UA not strongly suggestive of urinary tract infection although was slightly suboptimal due to epithelial cell contamination. Culture sent for blood and urine is precaution. Patient's lactic acid and procalcitonin reassuring. Patient was hydrated here and did appear improved although did still feel nauseated and did have recurrent vomiting. Patient was given several rounds of antiemetics. Patient was noted to be intermittently dipping her oxyge n saturations into the upper 80s. Due to concern for this and no prior pulmonary history as well as likely pneumonia on chest x-ray, case discussed with the hospitalist for additional evaluation management. Patient was initially started on IV cefepime. While patient does have vomiting, she has no prior history of dysphasia or aspiration I feel aspiration is less likely. Patient denies any recent sick contacts, no known coronavirus exposure. In discussion with the hospitalist they would like an in-house coronavirus test as a precaution. Patient's INR supratherapeutic, despite her history of PE I feel PE less likely due to INR. I do not suspect acute cardiac pathology including ACS or CHF. Patient was aware of all results and was in agreement with plan. Patient continued to be hydrated here. An order was placed for continuous cardiac monitoring. The monitor shows a rate of _78_ with normal sinus rhythm. Impression & Plan Pneumonia, Hypoxia, Supratherapeutic INR, Anemia Discharge Plan Visit Data *Final* Discharge Date/Time: 07/09/20 06:36 Chief Complaint: Illness Stated Complaint: SICK,CLAMMY,SWEATY,RESTLESS ED Provider: Nella Garcia Discharge Problem: Pneumonia, Hypoxia, Supratherapeutic INR, Anemia Patient Disposition: Admitted As Inpatient Discharge Instructions Interventions: ED Discharge Assessment Last Done: 07/09/20 06:36 Discharge Problem: Pneumonia Qualifiers: Pneumonia type: due to unspecified organism Laterality: right Lung location: lower lobe of lung Qualified Code(s): J18.9 - Pneumonia, unspecified organism Anemia Qualifiers: Anemia type: unspecified type Qualified Code(s): D64.9 - Anemia, unspecified
[2020-07-09 01:05] LABS: Basophils # (auto) 0.02 K/uL (0-0.2); Basophils % (auto) 0.2 %; Eosinophils # (auto) 0.08 K/uL (0-0.5); Eosinophils % (auto) 0.8 %; Hematocrit (blood only) 33.1 % (37-47); Hemoglobin 10.9 g/dL (12.0-16.0); Immature Granulocytes # (auto) 0.04 K/uL (0.00-0.02); Immature Granulocytes % (auto) 0.4 %; Lymphocytes % (auto) 18.3 %; Mean Corpuscular Hemoglobin 27.6 pg (25-34); Mean Corpuscular Hgb Conc 32.9 g/dL (32-36); Mean Corpuscular Volume 83.8 fL (80-100); Mean Platelet Volume 9.6 fL (7.4-10.4); Monocytes # (auto) 0.53 K/uL (0.11-0.59); Monocytes % (auto) 5.4 %; Neutrophils # (auto) 7.36 K/uL (1.4-6.5); Neutrophils % (auto) 74.9 %; Platelet Count 442 K/uL (130-400); RDW Coefficient of Variation 16.7 % (11.5-14.5); RDW Standard Deviation 51.5 fL (36.4-46.3); Red Blood Count 3.95 M/uL (4.2-5.4); White Blood Count 9.83 K/uL (4.8-10.8)
[2020-07-09 01:21] LABS: Appearance Urine Cloudy (Clear); Bacteria Urine Automated Negative (Negative); Blood Urine Negative (Negative); Color Urine Dark Yellow; Epithelial Cell Urine Auto >30 /lpf (0-5); Glucose Urine UA Negative (Negative); Ketones Urine Trace (Negative); Leukocyte Esterase Urine 1+ (Negative); Nitrite Urine Negative (Negative); RBC Urine Automated 0-4 /hpf (0-4); Specific Gravity Urine 1.025 (1.000-1.030); Urobilinogen Urine Negative (Negative); pH Urine 7.5 (4.5-7.5)
[2020-07-09 01:30] LABS: Alanine Aminotransferase 63 U/L (12-78); Albumin Globulin Ratio 0.5 (0.9-2); Albumin Level 2.9 gm/dl (3.4-5.0); Alkaline Phosphatase 235 U/L (45-117); Aspartate Aminotransferase 52 U/L (15-37); BUN Creatinine Ratio 12.8 (10-20); Bilirubin,Total 0.5 mg/dl (0.2-1); Blood Urea Nitrogen 11 mg/dl (7-18); Calcium 9.3 mg/dl (8.5-10.1); Carbon Dioxide 29 mmol/L (21-32); Chloride 102 mmol/L (98-107); Creatinine Clr Calc Pharmacy 62.8 ml/min; Est GFR (Non-African American) 69.9; Globulin 5.5 gm/dl (2.5-4.0); Magnesium 1.9 mg/dl (1.8-2.4); Potassium 3.5 mmol/L (3.5-5.1); Sodium 136 mmol/L (136-145); Total Protein 8.4 gm/dl (6.4-8.2); Troponin I < 0.015 ng/ml (0-0.045)
[2020-07-09 01:32] LABS: Glucose 111 mg/dl (70-99)
[2020-07-09 01:37] LABS: Bilirubin Urine Negative (Negative); Ictotest Urine Negative (Negative); Protein Urine Negative (Negative); Sulfosalicylic Acid Urine Negative (Negative)
[2020-07-09 01:39] LABS: Cast Urine Automated 0 /lpf (0-5); Mucus Urine Present (None Prsent)
[2020-07-09] MEDS ORDERED: CEFEPIME 2,000 MG/20 ML VIAL IV STA (02:02)
[2020-07-09] MEDS ORDERED: IOVERSOL 100ml IV ONE (02:12)
[2020-07-09] MEDS: SODIUM CHLORIDE 0.9% 1000ML 1,000 ML IV SCH ×4 (02:44→18:10)
[2020-07-09 03:49] LABS: INR 5.1 (0.9-1.1); Partial Thromboplastin Ratio 2.2; Prothrombin Time 49.2 Seconds (9.0-12.0)
[2020-07-09 03:54] LABS: Partial Thromboplastin Time 60.4 Seconds (21.0-31.0)
[2020-07-09] MEDS ORDERED: LORazepam 0.25 MG/0.5 ML VIAL IV STA (06:17)
[2020-07-09] MEDS ORDERED: ACETAMINOPHEN 1,000 MG/100 ML VIAL IV STA (06:17)
[2020-07-09] MEDS ORDERED: PROCHLORPERAZINE 1 ML IV ONE (06:17)
--- NOTE | 2020-07-09 06:46 | History and Physical Report ---
DATE OF ADMISSION: 07/09/2020 CHIEF COMPLAINT: Nausea, vomiting and not feeling well. HISTORY OF PRESENT ILLNESS: This is a 70-year-old female with past medical history significant for type 2 diabetes, hypothyroidism, history of dyspnea, hypertension, GERD, vitamin D deficiency, history of L4-L5 herniated nucleus pulposus, carpal tunnel syndrome, cervical spondylosis, restless leg syndrome, acute angle closure glaucoma, cauda equina syndrome without mention of neurogenic bladder, thoracic and lumbosacral neuritis, retinal disorder, heterozygous for prothrombin mutation, monoclonal paraproteinemia, major depression, post laminectomy syndrome of lumbar region, primary central sleep apnea, history of pulmonary embolism, depression, presents with illness, not feeling well for the last few days. For the last 4 days, she is having urinary symptoms with increased frequency of urination, some pressure like feeling in the lower abdomen.Last night she felt very agitated and she was really nauseous and vomited 1 time at home and in the ER vomited 2 times. In the ER, she was slightly hypoxic, saturating 88% on room air, on 2 liters, she is saturating fine. Currently resting comfortably and hemodynamically stable. Denies any fever, chills, no cough, no shortness of breath but has chest pain in the left side of the chest radiating to back and the pain is more with the deep breath. She has some mild headaches, mild dizziness, mild blurred vision, no earache, no runny nose, no sore throat. No loss of sense of smell or taste. Appetite is not that great, but no dysphagia. No rash. No diarrhea or constipation, no blood in the stool or black stools. No swelling in the legs, no rash. Ambulates okay. ALLERGIES: ATROPINE, NALOXONE, SULFA ANTIBIOTICS, REGLAN, METOCLOPRAMIDE. PAST MEDICAL HISTORY: As mentioned above. PAST SURGICAL HISTORY: Carpal tunnel surgery, colonoscopy, elbow surgery, bilateral cataract surgery, lumbar laminectomy, laparoscopic cholecystectomy, multiple back surgeries, morphine pump in the back, bilateral blepharoplasty, cervical spine fusion surgery, shoulder surgery, total hysterectomy. MEDICATIONS: The patient is on atorvastatin 10 mg p.o. daily, lidocaine patch on and off, Coumadin 5 mg as directed, Lexapro 20 mg p.o. daily, metformin 1000 mg p.o. b.i.d., omeprazole 20 mg p.o. daily, insulin sliding scale, Phenergan 25 mg p.o. q. 6 hours p.r.n., lisinopril 10 mg p.o. daily, insulin glargine 16 units at bedtime, sumatriptan p.r.n., oxygen 2 liters through BiPAP while sleeping, Timoptic ophthalmic solution, Artificial Tears, ProAir 2 puffs every 4 hours p.r.n., aspirin enteric coated 81 mg p.o. daily, magnesium oxide 400 mg p.o. daily, vitamin D 5000 units daily, MiraLax daily, Centrum Silver 1 tablet daily. FAMILY HISTORY: Significant for mother had blood clot. Father had CABG and CVA. Son has ulcerative colitis. Father has diabetes, aunt has leukemia. Daughter has breast cancer. SOCIAL HISTORY: . No smoking, alcohol rare. No drug use. REVIEW OF SYMPTOMS: As per HPI. Rest of review of symptoms negative. PHYSICAL EXAMINATION: GENERAL: The patient is of moderate build, not in acute distress. VITAL SIGNS: Temperature 36.5, pulse 69, respiratory rate 16, blood pressure 137/67, oxygen 98% on room air. HEENT: No pallor, no icterus. Pupils equal, round, reactive to light. NECK: No JVD, no neck masses. CARDIOVASCULAR: S1, S2 heard, regular rate and rhythm, no murmur, no gallop. RESPIRATORY SYSTEM: Normal AP diameter. No accessory muscle use. No wheezing, no crackles. ABDOMEN: Soft, bowel sounds present, nontender. No distention. CENTRAL NERVOUS SYSTEM: Cranial nerves II-XII grossly intact. Nonfocal. EXTREMITIES: No edema, no erythema. LABORATORY DATA: WBC 9.8, hemoglobin 10.9, hematocrit 33.1, platelets 442. PT 49.2, INR 5.1, APTT 60.4. Sodium 136, potassium 3.5, chloride 102, bicarbonate 29, BUN 11, creatinine 0.8, serum glucose 111, lactate 0.9, calcium 9.3, magnesium 1.9, total bilirubin 0.5, AST 52, ALT 63, alkaline phosphatase 235. Troponin I less than 0.015. Procalcitonin 0.24. Urinalysis positive for leukocyte esterase. COVID-19 PCR pending. Chest x-ray, questionable right lower lobe infiltrate. CTA of abdomen and pelvis, mild fatty infiltration of the liver, baclofen pump placing over the right lower pelvis, no acute findings. EKG: Normal sinus rhythm, rate of 73, nonspecific T-wave abnormality seen. ASSESSMENT AND PLAN: A 70-year-old female who presents with not feeling well, nausea, vomiting and was mildly hypoxic in the ER. 1. Nausea, vomiting, lower abdominal discomfort, possibly from urinary tract infection. Follow the cultures. Empirically started on Rocephin, IV fluids. 2. Possible pneumonia and was slightly hypoxic in the ER with 88% on room, on 2 liters saturating fine. There is questionable right lower lobe infiltrate, treated with Rocephin and doxycycline. COVID Negative. Currently chest pain in the left side of the chest radiating to the back, more with deep breath, will follow serial enzymes. Follow the CT chest. 3. History of central sleep apnea: On BiPAP at bedtime. 4. History of pulmonary embolism, on Coumadin. INR is supratherapeutic at 5.1. We will hold Coumadin. Follow the inr. 5. Depression: On Lexapro. 6. Hypertension: On lisinopril. 7. Hyperlipidemia: On statin. 8. Diabetes: Continue home insulin Glargine, will place on insulin sliding scale. Hold metformin. Follow the blood sugars. 9. Chronic back pain, history of back surgeries: On pain pump. 10. History of hypothyroidism:Not On Synthroid medication. We will follow the TSH levels. 11. History of monoclonal paraproteinemia:Following with Heme/Onco.. 12. Deep venous thrombosis prophylaxis: Heparin subQ. DISPOSITION: Admit to med tele. Level 1 full code. Expect discharge home and follow with family doctor. MTDD
--- NOTE | 2020-07-09 06:49 | XRay Report ---
XR chest 1V portable CLINICAL HISTORY: SEPSIS dyspnea COMPARISON STUDY: 08/31/2016 FINDINGS: Mild cardiomegaly. Prominent pulmonary vasculature. Diaphragms are smooth. IMPRESSION: Cardiomegaly. Pulmonary vascular congestion. ACT 112: Negative or not required by law. The above report was generated using voice recognition software. It may contain grammatical, syntax or spelling errors. Electronically signed by: Joe Lynn M.D. 07/09/2020 6:48 AM
--- NOTE | 2020-07-09 07:47 | CT Scan Report ---
ABDOMEN AND PELVIS CT WITH IV CONTRAST CT DOSE: 633.49 mGy.cm HISTORY: Lower abdominal pain. Nausea. Vomiting. TECHNIQUE: Multiaxial CT images of the abdomen and pelvis were performed following the use of intrave nous contrast. A dose lowering technique was utilized adhering to the principles of ALARA. COMPARISON STUDY: Abdomen and pelvis CT 08/04/2009. FINDINGS: A few linear scarlike densities within the right lung base. No pneumoperitoneum. No pneumat osis. Lumbar spine posterior decompression and fusion. There is an intrathecal catheter which is seen within the lower thoracic/lumbar region. The tip is not included on this study. No suspicious lytic or blastic osseous lesions. Cholecystectomy. Mild intra and extra hepatic bile duct dilatation remain s unchanged. This is likely due to the patient's post cholecystectomy state. No hepatic or splenic ma sses. The adrenal glands and pancreas are unremarkable. No hydronephrosis. No retroperitoneal lymphad enopathy. Mild calcified plaque within the normal caliber abdominal aorta. Mild bladder wall thickeni ng which could be due to underdistention. The uterus is surgically absent. No bowel wall thickening o r obstruction. Moderate stool within the colon. 3 mm punctate density within the normal caliber appen burke. This could represent an appendicolith. IMPRESSION: 1. No bowel wall thickening or obstruction. 2. Mild bladder wall thickening which could be due to underdistention. Recommend correlation with uri nalysis to exclude a cystitis. 3. Cholecystectomy. This likely accounts for the duct dilatation which remains unchanged. 4. Normal caliber appendix. 3 mm punctate density within the appendix may represent an appendicolith. ACT 112: Negative or not required by law. Electronically signed by: Kaden Billingsley M.D. 07/09/2020 7:45 AM
[2020-07-09] MEDS ORDERED: NITROGLYCERIN SL 0.4 MG/TAB TAB SL PRN ×2 (08:01→10:11)
[2020-07-09] MEDS ORDERED: ALBUTEROL HFA 8 GM INHALER INH PRN (08:01)
[2020-07-09] MEDS ORDERED: POLYETHYLENE (MIRALAX) 17 GM PACK PO PRN (08:01)
[2020-07-09] MEDS ORDERED: HEPARIN SOD 5,000 UNIT/0.5 ML VIAL SQ SCH (08:01)
[2020-07-09] MEDS ORDERED: PROMETHAZINE HCL 25 MG TAB PO PRN (08:01)
[2020-07-09] MEDS ORDERED: ARTIFICIAL TEARS OP PRN (08:11)
--- NOTE | 2020-07-09 08:13 | CT Scan Report ---
CT OF THE CHEST WITHOUT IV CONTRAST CLINICAL HISTORY: Pneumonia. Chest pain. COMPARISON STUDY: Chest CT August 30, 2016. Chest radiograph July 09, 2020. CT DOSE: 417.39 mGy.cm TECHNIQUE: Axial images of the chest were obtained without IV contrast. Images were reviewed in the axial, sagittal, and coronal planes. IV contrast was not administered for this examination. Automat ed exposure control was utilized for the study. A dose lowering technique was utilized adhering to t he principles of ALARA. FINDINGS: Incidental note is made of postoperative findings within the cervical spine. No enlarged a xillary, mediastinal or hilar lymph nodes are present. Cardiac size is at the upper limits of normal. There is no pericardial effusion. Intrathecal catheter is partially imaged. Central airways are parker nt. There is no pneumothorax or pleural effusion. Note is made of mild right middle lobe, lingular an d bilateral lower lobe airspace opacities which favor atelectasis. There is no consolidation to sugge st pneumonia. A 3 mm calcified granuloma within the right lower lobe is noted. There are no suspiciou s pulmonary nodules. No suspicious lesions or acute fractures are identified within visualized skelet al structures. Upper abdomen is unremarkable on this unenhanced examination. IMPRESSION: 1. Right middle lobe, lingular and bilateral lower lobe airspace opacities consistent with atelectasi s. No consolidation to suggest pneumonia. 2. No acute findings within the chest. ACT 112: Negative or not required by law. Electronically signed by: Reynaldo Pena M.D. 07/09/2020 8:12 AM
[2020-07-09] MEDS ORDERED: GLUCAGON FOR INJ 1 MG VIAL IM PRN (08:30)
[2020-07-09] MEDS ORDERED: CARBOHYDRATES FOR HYPOGLYCEMIA PO PRN (08:30)
[2020-07-09] MEDS ORDERED: GLUCOSE 40% GEL 15 GM TUBE PO PRN (08:30)
[2020-07-09] MEDS ORDERED: GLUCOSE 10 TABS/TUBE PO PRN (08:30)
[2020-07-09] MEDS ORDERED: DEXTROSE 50% 50 ML SYRINGE IV PRN (08:30)
[2020-07-09] MEDS: cefTRIAXone SODIUM 2,000 MG in DEXTROSE 5% 50 ML IV SCH (08:59)
[2020-07-09] MEDS: INSULIN ASPART 100 UNITS/ML 3 ML PEN SC SCH ×4 (08:59→20:55)
[2020-07-09] MEDS: DOXYCYCLINE HYCLATE 100 MG in DEXTROSE 5% 100 ML IV SCH ×2 (08:59→20:53)
[2020-07-09] MEDS: POLYETHYLENE (MIRALAX) 17 GM PACK PO SCH (09:00)
[2020-07-09] MEDS: lisinopriL 10 MG TAB PO SCH (09:00)
[2020-07-09] MEDS: CHOLECALCIFEROL 1,000 UNITS 25 MCG TAB PO SCH (09:00)
[2020-07-09] MEDS: TIMOLOL MALEATE 0.5% OP SOLN 5 ML BTL OPL SCH (09:01)
[2020-07-09] MEDS: MULTIVITAMIN TAB PO SCH (09:01)
[2020-07-09] MEDS: ESCITALOPRAM OXALATE 20 MG TAB PO SCH (09:01)
[2020-07-09] MEDS: ATORVASTATIN 10 MG TAB PO SCH (09:01)
[2020-07-09] MEDS: MAGNESIUM OXIDE 400 MG TAB PO SCH (09:01)
[2020-07-09] MEDS: ASPIRIN 81 MG ECTAB PO SCH (09:01)
[2020-07-09] MEDS: PANTOprazole 40 MG TAB PO SCH (09:01)
[2020-07-09] MEDS ORDERED: BACLOFEN PAIN PUMP INT SPINAL SCH (09:45)
[2020-07-09] MEDS: ONDANSETRON INJ 2 MG/ML 2 ML VIAL IV PRN (09:55)
[2020-07-09] MEDS ORDERED: MoRPHine SULFATE 2 MG/ML CARP IV ONE (10:11)
[2020-07-09] MEDS: prednisoLONE acetate 1% OP SUSP 5 ML BTL OP SCH ×3 (13:04→20:55)
--- NOTE | 2020-07-09 14:04 | Cardiology Consultation ---
Date of Consultation July 09, 2020 Assessment & Plan (1) Chest pressure: At the conclusion of my examination, nitroglycerin 0.3 mg was administered SL with partial palliation of her discomfort. Although troponin is negative x 3, her symptoms are concerning for unstable angina in this 70 year old female with a history of longstatin diabetes. Will continue aspirin 81 mg. Add metoprolol tartrate 25 mg BID, first dose now. Continue atorvastatin. A stat INR has been requested in follow up of her coagulopathy, as this would need to be normalized prior to consideration of cardiac catheterization. Start topical nitro paste in the meantime. (2) Coagulopathy: Pt on coumadin due to past PE. CT of chest this admission was without contrast, no definite pneumonia, although she remains on antibiotic coverage for now. Coumadin on hold. Stat INR ordered, if necessary my need to administer vitamin K for INR goal of 2 or less for cardiac catheterization. (3) Presence of intrathecal pump: Continue outpatient treatment. History of Present Illness Attending Physician: Rafael Riley MD History of Present Illness Tanner Sheth is a 70 year old female seen in cardiology consultation per the request of Dr Riley for the evaluation of nausea and chest pressure. She is accompanied by her spouse at the bedside. They both describe onset of discomfort yesterday while in bed. Symptoms included agitation, nauseousness, heavy perspiration, and chest pressure. At the time of my assessment, the patient already had two troponin I levels that were undetectable, and just after I finished interviewing and examining her, a third level drawn at 1400 has come back undetectable as well. Her initial EKG revealed sinus rhythm with mild nonspecific repolarization changes. Repeat performed per my request at 12:33 PM revealed normal sinus rhythm 100 bpm, with mild nonspecific repolarization changes in the lateral leads, there was significant baseline artifact in lead V2, V3 due to difficulty the patient had with complying with the EKG. A resting echocardiogram revealed normal LVEF with normal wall motion and no regional wall motion abnormalities. The patient's past history is notable for longstanding type 2 diabetes mellitus. She has a history of past lumbar laminectomy, and has an indwelling intrathecal pump that administers morphine, clonidine, and baclofen. She notes no recent changes in the regimen for her pain medications, and her and her are shelly th in agreement that this particular pain/pressure in her left chest is not sure of typical back pain. She describes a family history of heart disease in her father who had bypass surgery. Allergies Allergy/AdvReac Type Severity Reaction Status Date / Time atropine Allergy Mild ITCHING Verified 07/09/20 02:15 AND HIVES Sulfa (Sulfonamide Allergy Mild MODERATE Verified 07/09/20 02:15 Antibiotics) RASH nickel Allergy Unknown RASH Verified 07/09/20 02:15 naloxone AdvReac Intermediate N/V, Verified 07/09/20 02:15 HALLUCINATIONS, EXTREME ANXIETY,JAW CLENCHING Home Medications Home Medications Medication Instructions Recorded Confirmed Type albuterol sulfate 90 mcg/actuation 2 puffs INH Q4 PRN 09/02/18 07/09/20 History aerosol inhaler aspirin 81 mg tablet,delayed 81 mg PO DAILY 09/02/18 07/09/20 History release atorvastatin 10 mg tablet 10 mg PO DAILY 09/02/18 07/09/20 History cholecalciferol (vitamin D3) 25 5,000 units PO DAILY 09/02/18 07/09/20 History mcg (1,000 unit) capsule insulin aspart U-100 100 unit/mL See Rx Instructions .ROUTE 09/02/18 07/09/20 History subcutaneous cartridge .COMPLEX ml insulin glargine 100 unit/mL (3 14 units SQ HS ml 09/02/18 07/09/20 History mL) subcutaneous pen lifitegrast 5 % eye drops in a 1 drops OPB BID ea 09/02/18 07/09/20 History dropperette lisinopril 10 mg tablet 10 mg PO DAILY 09/02/18 07/09/20 History magnesium oxide 400 mg PO DAILY cap 09/02/18 07/09/20 History metformin 1,000 mg tablet 1,000 mg PO BID 09/02/18 07/09/20 History multivitamin 1 cap PO DAILY 09/02/18 07/09/20 History omeprazole 20 mg capsule,delayed 20 mg PO DAILY 09/02/18 07/09/20 History release polyethylene glycol 3350 17 17 gm PO DAILY gm 09/02/18 07/09/20 History gram/dose oral powder sumatriptan succinate 100 mg tablet 100 mg PO .use as directed PRN tab 09/02/18 07/09/20 History timolol maleate 0.5 % once daily 1 drops OPL QAM ml 09/02/18 07/09/20 History eye drops warfarin 5 mg tablet 2.5 - 5 mg PO QPM tab 09/02/18 07/09/20 History Synchromed Pump Refill See Rx Instructions .ROUTE .COMPLEX 07/09/20 07/09/20 History artifi.tears(hypromellose)(PF) 1 drp OPHTHALMIC (EYE) QID PRN 07/09/20 07/09/20 History escitalopram oxalate 20 mg PO DAILY 07/09/20 07/09/20 History prednisolone acetate 1 drp OPR QID 07/09/20 07/09/20 History promethazine 25 mg PO Q6 PRN 07/09/20 07/09/20 History Patient History Medical History Cervical postlaminectomy syndrome (Chronic) Chronic pain of left knee (Chronic) Depression (Chronic) Lumbar postlaminectomy syndrome (Chronic) Migraine (Chronic) Monoclonal paraproteinemia (Chronic) "MGUS" Presence of intrathecal pump (Chronic) Primary central sleep apnea (Chronic) Pulmonary embolism (Resolved) Retinal vascular disorder (Chronic 01/29/12) Sacroiliitis (Chronic) Severe dizziness (Resolved) SOB (shortness of breath) (Resolved) Surgical History H/O colonoscopy (Resolved) H/O cystoscopy (Resolved) H/O elbow surgery (Resolved) H/O eye surgery (Resolved) History of carpal tunnel surgery (Resolved) History of hysterectomy (Resolved) S/P cervical spinal fusion (Resolved) S/P cholecystectomy (Resolved) S/P lumbar laminectomy (Resolved) Family History (Updated 07/09/20 @ 15:13 by Blas Loja DO) Father Coronary heart disease Social History Smoking Status: Never smoker Hx Alcohol Use: Yes (1-2x/month) Alcohol type: wine Hx Substance Use: No Preferred Language: Estonian Communication Ability: Effective Hospital Account Manager Required: No Beliefs That Will Affect Care: None marital status: Current Living Situation: Spouse Other Information That Helps Us Care for You: No Feels Safe at Home: Yes Safety Concerns: Feels Safe At This Time Review of Systems Review of Systems: All systems reviewed & are unremarkable except as noted in HPI & below Physical Exam Physical Exam: Temp Pulse Resp BP Pulse Ox 36.8 C 81 18 154/77 H 90 07/09/20 15:00 07/09/20 15:00 07/09/20 15:00 07/09/20 15:00 07/09/20 15:00 Constitutional: + ill appearing Respiratory: normal respiratory effort, lungs clear to auscultation Cardiovascular: RRR, no murmur, no edema Gastrointestinal (Abdomen): normal bowel sounds, soft, nontender, no hepatosplenomegaly Neurologic: PERRL, EOMI, accommodation nl, no face palsy, no dysarthria Results & Data ([facility]) Vital Signs (Past 12 Hours) Vital Signs Temp Pulse Pulse Resp BP BP Pulse Ox 07/09/20 12:22 36.7 C 95 H 20 144/88 H 91 07/09/20 09:40 36.6 C 83 20 148/67 H 91 07/09/20 06:30 134/63 07/09/20 06:00 68 13 149/71 H 98 07/09/20 05:30 68 13 132/67 98 07/09/20 05:01 69 16 98 07/09/20 05:00 69 20 137/67 98 07/09/20 04:45 80 12 100 07/09/20 04:31 77 19 97 07/09/20 04:30 72 24 137/70 97 07/09/20 04:15 73 16 96 07/09/20 04:01 74 17 97 07/09/20 04:00 73 16 150/70 H 97 07/09/20 03:30 74 16 130/66 99 07/09/20 03:03 80 17 150/71 H 91 07/09/20 03:02 83 16 92 07/09/20 02:45 80 18 93 07/09/20 02:31 75 14 91 07/09/20 02:30 74 14 141/69 H 90 07/09/20 02:15 74 20 93 07/09/20 02:05 80 17 95 07/09/20 02:04 79 17 138/54 L 92 Laboratory Results Cardiac Enzymes 07/09/20 07/09/20 07/09/20 Range/Units 00:54 08:16 13:48 AST 52 H (15-37) U/L Troponin I < 0.015 < 0.015 < 0.015 (0-0.045) ng/ml Coagulation INR 07/09/20 was 5.1 07/09/20 07/09/20 Range/Units 00:54 02:15 PT Cancelled 49.2 H APTT Cancelled 60.4 H* CBC 07/09/20 Range/Units 00:54 WBC 9.83 (4.8-10.8) K/uL RBC 3.95 L (4.2-5.4) M/uL Hgb 10.9 L (12.0-16.0) g/dL Hct 33.1 L (37-47) % Plt Count 442 H (130-400) K/uL Neut # (Auto) 7.36 H (1.4-6.5) K/uL Lymph # (Auto) 1.80 (1.2-3.4) K/uL Crosby # (Auto) 0.53 (0.11-0.59) K/uL Eos # (Auto) 0.08 (0-0.5) K/uL Baso # (Auto) 0.02 (0-0.2) K/uL Comprehensive Metabolic Panel 07/09/20 Range/Units 00:54 Sodium 136 (136-145) mmol/L Potassium 3.5 (3.5-5.1) mmol/L Chloride 102 (98-107) mmol/L Carbon Dioxide 29 (21-32) mmol/L BUN 11 (7-18) mg/dl Creatinine 0.84 (0.6-1.2) mg/dl Glucose 111 H (70-99) mg/dl Calcium 9.3 (8.5-10.1) mg/dl AST 52 H (15-37) U/L ALT 63 (12-78) U/L Alkaline Phosphatase 235 H (45-117) U/L Total Protein 8.4 H (6.4-8.2) gm/dl Albumin 2.9 L (3.4-5.0) gm/dl Intake and Output 07/09/20 07/09/20 07/09/20 06:59 14:59 22:59 Intake Total 2099 Output Total 35 / 35 Balance 2064 Intake: IV 2099 180 / 180 OFIRMEV 1,000 mg In 100 ml @ 100 / 100 400 mls/hr IV NOW STA Rx#: [id number] Vibramycin 100 mg In D5 100 ml 110 / 110 @ 50 mls/hr IV Q12H [facility]IOLET Rx#: [id number] Nss 1000ML 1,000 ml @ 250 mls/ 2000 / 2000 hr IV .Q4H [facility] Rx#:[id number] Rocephin 2,000 mg In D5w 50 ml 70 / 70 @ 100 mls/hr IV DAILY [facility]IOLET Rx#: [id number] Oral 25 / 25 Output: Urine 35 / 35 Other: Other Intake Source SIPS Weight 83.4 kg
[2020-07-09] MEDS ORDERED: NITROGLYCERIN 0.3 MG/1 TAB 100 TAB BTL SL STA (14:50)
[2020-07-09] MEDS ORDERED: METOPROLOL TARTRATE 25 MG TAB PO ONE (15:25)
[2020-07-09] MEDS: NITROGLYCERIN 2% OINTMENT 30GM TUBE EXT SCH ×2 (15:32→21:00)
[2020-07-09 15:44] LABS: INR 4.6 (0.9-1.1); Partial Thromboplastin Ratio 1.9; Prothrombin Time 44.6 Seconds (9.0-12.0)
[2020-07-09 15:57] LABS: Partial Thromboplastin Time 54.1 Seconds (21.0-31.0)
--- NOTE | 2020-07-09 16:39 | Communication Note ---
Date of Service: July 09, 2020 INR remains elevated at 4.6 Will proceed with vitamin K 2.5 mg IV x 1 dose now, Repeat INR in am.
[2020-07-09] MEDS ORDERED: PHYTONADIONE 2.5 MG in SODIUM CHLORIDE 0.9% 50 ML IV ONE (16:45)
[2020-07-09] MEDS ORDERED: MoRPHine SULFATE 2 MG/ML CARP IV PRN (17:22)
--- NOTE | 2020-07-09 17:54 | Hospitalist Progress Note ---
Date of Service July 09, 2020 Assessment & Plan (1) Chest pressure: Patient is a 70 yr female who presents with not feeling well, nausea, vomiting, chest pain and was found to be hypoxic in the ER. Chest Pain R/O ACS: DD: Unstable angina, Anxiety, costochondritis Chest CT:Right middle lobe, lingular and bilateral lower lobe airspace opacities consistent with atelectasis. No consolidation to suggest pneumonia. No acute findings within the chest. ECHO: Normal left ventricular wall thickness. Left ventricular wall motion is normal. Ventricular systolic function is normal. No regional wall motion abnormalities. Ejection fraction 60 to 65%. Grade 1 diastolic dysfunction. Troponin X 3: Negative Continue aspirin 81 mg daily, atorvastatin Added metoprolol 25 mg twice daily INR in supratherapeutic range Appreciate cardiology input Coumadin held for possible procedure and secondary to supratherapeutic INR N.p.o. after midnight Supratherapeutic INR Hold Coumadin for now Given vitamin K Monitor INR Nausea/vomiting/Abdominal discomfort R/O UTI Urine culture pending Continue empiric antibiotics Abnormal CT chest Hypoxia H/O Central Sleep Apnea Normal Procalcitonin CT as above Negative COVID PCR Hypoxia resolved Continue BiPAP at bedtime H/O PE Coumadin on hold Resume coumadin as able Monitor INR Depression: On Lexapro Hypertension Continue lisinopril Hyperlipidemia On statin DM II Continue ISS, basal insulin Monitor BGs Hold p.o. meds for now Chronic back pain H/O back surgeries On pain pump H/O hypothyroidism Not on Levothyroxine Monitor TSH H/O Monoclonal Paraproteinemia Follows with Oncology as outpatient DVT Px: INR supratherapeutic Code Status Full Code DISPOSITION: Expect to discharge home Admission and Anticipated Discharge Date Admission Date: July 09, 2020 Subjective Patient is seen and examined at bedside Complains of chest heaviness retrosternally associated with nausea and diaphoresis Denies shortness of breath, cough, vomiting, abdominal pain, diarrhea, dysuria Family at bedside Discussed with cardiology today Cardiac enzymes remain negative Offers no other complaints Review of Systems Review of Systems: All systems reviewed & are unremarkable except as noted in HPI & below Physical Exam Physical Exam: Physical Exam: Vitals signs as noted above General Appearance:Ill appearing, Moderately built and nourished Head: normocephalic, Atraumatic Eyes: normal inspection, EOMI Neck: supple, Trachea midline Respiratory/Chest: Normal breath sounds, CTA, No accessory muscle use Cardiovascular: S1, S2, No murmur Chest: Reproducible chest discomfort Abdomen/GI:Soft, Non tender, Bowel sounds present Extremities/Musculoskelatal:normal inspection, no edema Neurologic/Psych:AAOX3, grossly no focal neurological deficits Skin: normal color, warm Results & Data Results & Data ([facility]) Vital Signs (Past 12 Hours) Vital Signs Temp Pulse Pulse Resp BP BP BP 07/09/20 17:07 36.9 C 74 18 149/71 H 07/09/20 16:36 85 07/09/20 15:00 36.8 C 81 18 154/77 H 07/09/20 12:22 36.7 C 95 H 20 144/88 H 07/09/20 09:40 36.6 C 83 20 148/67 H 07/09/20 06:30 134/63 07/09/20 06:00 68 13 149/71 H Pulse Ox 07/09/20 17:07 96 07/09/20 16:36 07/09/20 15:00 90 07/09/20 12:22 91 07/09/20 09:40 91 07/09/20 06:30 07/09/20 06:00 98 Laboratory Results Short CBC 07/09/20 Range/Units 00:54 WBC 9.83 (4.8-10.8) K/uL Hgb 10.9 L (12.0-16.0) g/dL Hct 33.1 L (37-47) % Plt Count 442 H (130-400) K/uL BMP 07/09/20 00:54 Sodium 136 Potassium 3.5 Chloride 102 Carbon Dioxide 29 BUN 11 Creatinine 0.84 Glucose 111 H Calcium 9.3 Cardiac Enzymes 07/09/20 07/09/20 07/09/20 Range/Units 00:54 08:16 13:48 Troponin I < 0.015 < 0.015 < 0.015 (0-0.045) ng/ml Liver Function 07/09/20 Range/Units 00:54 Total Bilirubin 0.5 (0.2-1) mg/dl AST 52 H (15-37) U/L ALT 63 (12-78) U/L Alkaline Phosphatase 235 H (45-117) U/L Albumin 2.9 L (3.4-5.0) gm/dl Urine 08/11/20 Range/Units 00:54 Urine Color Dark Yellow Urine Appearance Cloudy A (Clear) Urine pH 7.5 (4.5-7.5) Ur Specific [place] 1.025 (1.000-1.030) Urine Protein Negative (Negative) Urine Glucose (UA) Negative (Negative)
[2020-07-09] MEDS: INSULIN GLARGINE SOLOSTAR 100 UNITS/ML 3 ML PEN SQ SCH (20:54)
[2020-07-10] MEDS: SUMAtriptan succinate 100 MG TAB PO PRN ×2 (00:28→23:52)
[2020-07-10] MEDS: SODIUM CHLORIDE 0.9% 1000ML 1,000 ML IV SCH ×2 (01:42→11:20)
[2020-07-10] MEDS: NITROGLYCERIN 2% OINTMENT 30GM TUBE EXT SCH ×2 (04:10→11:24)
[2020-07-10 06:16] LABS: Basophils # (auto) 0.02 K/uL (0-0.2); Basophils % (auto) 0.2 %; Eosinophils # (auto) 0.13 K/uL (0-0.5); Eosinophils % (auto) 1.4 %; Hematocrit (blood only) 30.8 % (37-47); Hemoglobin 9.5 g/dL (12.0-16.0); Immature Granulocytes # (auto) 0.07 K/uL (0.00-0.02); Immature Granulocytes % (auto) 0.8 %; Lymphocytes # (auto) 2.26 K/uL (1.2-3.4); Lymphocytes % (auto) 25.1 %; Mean Corpuscular Hemoglobin 26.6 pg (25-34); Mean Corpuscular Hgb Conc 30.8 g/dL (32-36); Mean Corpuscular Volume 86.3 fL (80-100); Mean Platelet Volume 9.6 fL (7.4-10.4); Monocytes # (auto) 0.38 K/uL (0.11-0.59); Monocytes % (auto) 4.2 %; Neutrophils # (auto) 6.13 K/uL (1.4-6.5); Neutrophils % (auto) 68.3 %; Platelet Count 468 K/uL (130-400); RDW Coefficient of Variation 17.2 % (11.5-14.5); RDW Standard Deviation 54.7 fL (36.4-46.3); Red Blood Count 3.57 M/uL (4.2-5.4); White Blood Count 8.99 K/uL (4.8-10.8)
[2020-07-10 06:26] LABS: INR 1.6 (0.9-1.1); Prothrombin Time 16.6 Seconds (9.0-12.0)
[2020-07-10 06:38] LABS: Glucose 99 mg/dl (70-99)
[2020-07-10 06:39] LABS: BUN Creatinine Ratio 8.3 (10-20); Calcium 8.3 mg/dl (8.5-10.1); Carbon Dioxide 29 mmol/L (21-32); Chloride 108 mmol/L (98-107); Creatinine Clr Calc Pharmacy 79.8 ml/min; Est GFR (African American) 102.5; Est GFR (Non-African American) 88.4; Potassium 3.2 mmol/L (3.5-5.1); Sodium 141 mmol/L (136-145)
[2020-07-10 06:48] LABS: Blood Urea Nitrogen 6 mg/dl (7-18)
[2020-07-10 06:49] LABS: Troponin I < 0.015 ng/ml (0-0.045)
[2020-07-10 07:08] LABS: T4 Free Thyroxine 1.27 ng/dl (0.8-1.6)
[2020-07-10] MEDS: ESCITALOPRAM OXALATE 20 MG TAB PO SCH (07:13)
[2020-07-10] MEDS: lisinopriL 10 MG TAB PO SCH (07:13)
[2020-07-10] MEDS: MAGNESIUM OXIDE 400 MG TAB PO SCH (07:13)
[2020-07-10] MEDS: METOPROLOL TARTRATE 25 MG TAB PO SCH ×2 (07:14→20:34)
[2020-07-10] MEDS: PANTOprazole 40 MG TAB PO SCH (07:14)
[2020-07-10] MEDS: ATORVASTATIN 10 MG TAB PO SCH (07:14)
[2020-07-10] MEDS: CHOLECALCIFEROL 1,000 UNITS 25 MCG TAB PO SCH (07:14)
[2020-07-10] MEDS: MULTIVITAMIN TAB PO SCH (07:14)
[2020-07-10] MEDS: ASPIRIN 81 MG ECTAB PO SCH ×2 (07:14→08:25)
[2020-07-10] MEDS: POLYETHYLENE (MIRALAX) 17 GM PACK PO SCH (07:15)
[2020-07-10] MEDS: prednisoLONE acetate 1% OP SUSP 5 ML BTL OP SCH ×4 (07:15→20:34)
[2020-07-10] MEDS: TIMOLOL MALEATE 0.5% OP SOLN 5 ML BTL OPL SCH (07:16)
[2020-07-10] MEDS: ONDANSETRON INJ 2 MG/ML 2 ML VIAL IV PRN ×3 (07:37→15:50)
[2020-07-10] MEDS: INSULIN ASPART 100 UNITS/ML 3 ML PEN SC SCH ×4 (07:50→20:35)
[2020-07-10] MEDS ORDERED: POTASSIUM CHLORIDE 20 MEQ/15 ML UDC PO STA (07:59)
[2020-07-10] MEDS ORDERED: Nursing to Pharmacy Communication SCH ×2 (08:00→11:45)
[2020-07-10] MEDS: ACETAMINOPHEN 325 MG TAB PO PRN ×2 (08:24→20:49)
[2020-07-10] MEDS: DOXYCYCLINE HYCLATE 100 MG in DEXTROSE 5% 100 ML IV SCH ×2 (09:04→20:33)
[2020-07-10] MEDS: cefTRIAXone SODIUM 2,000 MG in DEXTROSE 5% 50 ML IV SCH (09:04)
--- NOTE | 2020-07-10 09:27 | Pre Anesthesia Assessment ---
Date of Service July 10, 2020 Pre Sedation Assessment Vital Signs Temp Pulse Pulse Resp BP BP Pulse Ox 07/10/20 07:02 98.1 F 77 17 146/68 H 96 07/10/20 03:11 98.2 F 69 17 153/81 H 96 07/10/20 00:40 88 07/09/20 22:50 98.6 F 73 20 142/71 H 96 07/09/20 19:27 98.6 F 73 19 132/70 91 07/09/20 17:07 98.4 F 74 18 149/71 H 96 07/09/20 16:36 85 07/09/20 15:00 98.2 F 81 18 154/77 H 90 07/09/20 12:22 98.1 F 95 H 20 144/88 H 91 07/09/20 09:40 97.9 F 83 20 148/67 H 91 Cardiovascular RRR, no murmur, no edema Respiratory normal respiratory effort, lungs clear to auscultation Pre-Sedation Airway Assessment Smoking Status: Never smoker Hx Sleep Apnea: No Hx Difficult Intubation: No Short, Thick Neck: No Thyromental Distance: > or= 3.5 Finger Breadths Oral Cavity: + WNL Mallampati Class: III ASA: ASA3 Procedure Planning Contraindications for Sedation: none Current Medications Reviewed: Yes Notes The planned sedation has been discussed with the patient. Informed Consent was obtained. I have identified the patient, determined the appropriateness of sedation and have assessed the patient immediately prior to the procedure. All medicine(s) and interventions are by my order.
[2020-07-10 09:29] LABS: Estimated Average Glucose 209 mg/dl; Hemoglobin A1C 8.9 % (4.5-5.6)
[2020-07-10] MEDS ORDERED: HEPARIN (PORCINE) 1000 UNIT/ML 10 ML (CATH LAB USE ONLY) ONE (09:51)
[2020-07-10] MEDS ORDERED: NiCARDipine HCL INJ 2.5 MG/ML 10 ML AMP ONE (09:51)
[2020-07-10] MEDS ORDERED: fentaNYL citrate 100 MCG/2 ML VIAL ONE (09:51)
[2020-07-10] MEDS ORDERED: MIDAZOLAM HCL 1 MG/ML 2ML VIAL ONE (09:51)
[2020-07-10] MEDS ORDERED: NITROGLYCERIN/D5W 100MCG/ML 20ML SYR ONE (09:52)
[2020-07-10] MEDS ORDERED: POTASSIUM CHLORIDE 20 MEQ TABCR PO ONE (10:02)
--- NOTE | 2020-07-10 10:51 | Post Anesthesia Assessment ---
Date of Service July 10, 2020 Post Sedation Assessment Vital Signs Temp Pulse Pulse Resp BP BP Pulse Ox 07/10/20 10:40 67 18 147/77 H 07/10/20 07:02 98.1 F 77 17 146/68 H 96 07/10/20 03:11 98.2 F 69 17 153/81 H 96 07/10/20 00:40 88 07/09/20 22:50 98.6 F 73 20 142/71 H 96 07/09/20 19:27 98.6 F 73 19 132/70 91 07/09/20 17:07 98.4 F 74 18 149/71 H 96 07/09/20 16:36 85 07/09/20 15:00 98.2 F 81 18 154/77 H 90 07/09/20 12:22 98.1 F 95 H 20 144/88 H 91 Recovery Score Activity: Moves 4 extremities Respiration: Deep Breath/Cough Circulation: +/-20% PreAnes Value Consciousness: Fully Awake Oxygen Saturation: O2 needed for >90% Post Anesthesia Score: 7 Discharge Sedation Level of Care: Fast Track Phase II Post Sedation Plan On clinical assessment, the patient appears to have tolerated the sedation without complications. Patient is recovering as anticipated. Patient will continue to be monitored by nursing and may be discharged when sedation discharge criteria are met per below protocol. Upon Completions of procedure up to 15 minutes continue every 5 minute vital signs and the P.A.R. score; then discharge to a Phase I or Fast Track to Phase II per the following guidelines: * Discharge Patient to appropriate Phase II area if PAR is 8 or greater or return to pre- procedure baseline. The post - procedure orders will be as directed. * If PAR score is less than 8 or not return to pre-procedure baseline then patient will follow Phase I monitoring till PAR is reached for Phase II. The Phase I may be done in procedure room or may call to secure a Phase I area. * If naloxone or flumazenil are used for reversal, hold in Phase I for continued monitoring from when last reversal dose was given for a minimum of 60 minutes or longer pending the nurse and/or physician discretion of patient condition before discharge to Phase II. Please call the Sedation Physician to re-evaluate and complete post-note for discharge to Phase II area. Do NOT discharge from procedure sedation or Phase 1 until post- sedation evaluation note is complete by procedure /sedation MD Sedation Discharge Instructions to be given to the patient at discharge to home.
--- NOTE | 2020-07-10 10:54 | Cardiac Catheterization ---
[facility] Data: Triple Valve Mechanic Cardiac Status Clinical evaluation leading to the procedure CAD Presenation: Unstable angina Anginal Classification: CCS IV Heart Failure: No Cardiogenic Shock within 24 Hours: No Cardiac Arrest within 24 Hours: No Imaging Studies Past 6 Months: No Stress Studies Past 6 Months: No Diagnostic Physicians Name: Pierce Molina MD Status: Elective Closure Device Percutaneous Entry Location: Radial Closure Device: Radial Band Recommendations: Medical Therapy and/or Counseling Intraprocedure Events Significant Disection: No Perforation: No Cardiac Cath Procedure Full Procedure Date July 10, 2020 Pre-Procedure Diagnosis Pre-Procedure Diagnosis: Angina AUC Score AUC Score: 7 Post-Procedure Diagnosis Post-Procedure Diagnosis: Normal Coronary Arteries and Elevated Intracardiac Pressures Procedure(s) Performed Procedure(s) Performed: Coronary Angiography and Left Heart Cath [employer]que[employer] Rattle And Leak Repairer Pierce Molina MD Education Department Registrar(s) Luis Estimated Blood Loss Estimated Blood Loss: 5 Medication(s) Medication(s): Fentanyl, Heparin, Lidocaine 1%, Nicardipine, Nitroglycerin and Versed Summary of Findings Indication: Suspected unstable angina Access: 6 Fr slender right radial artery Catheters: Porcupine, pigtail Findings: LM -angiographically normal LAD -medium caliber vessel, mid segment luminal irregularities, distal vessel wraps around apex Circumflex -medium caliber vessel, angiographically normal RCA -large caliber vessel, dominant, angiographically normal LVEDP -21 Arterial Closure: TR band Summary: 1. Normal coronary arteries 2. Elevated intracardiac filling pressure Recommendations: Further evaluation for noncardiac causes of patient's chest pain per primary team Continued ASCVD risk factor modification Hemodynamics Rest Ao:: 143/73/104 Final Ao: 153/68/104 LV: 150/21 Recommendations Recommendations: Medical Therapy and/or Counseling Radiation Exposure (mGy) 650 Contrast (mls) 45 I attest to the content of the Intraoperative Record and any orders documented therein. Any exceptions are noted below. [facility] Card Cath Procedure Codes Cardiac Catheterization Procedure 1: Cardiovascular Cath Procedures: 95569 Coronaries and LHC (+/-LV) Moderate Sedation Procedure 1: Sedation/Anesthesia: 75050 Mod Sedation by the same physician;Init15 Min Child Age 5 & Up PG Care Time/CCT Total # of Minutes Spent Total Time Spent with Patient: Total time spent is greater than 50% in coord ination of care (as documented) at patient's floor/unit and/or counseling patient:
[2020-07-10] MEDS ORDERED: SODIUM CHLORIDE 0.9% 1000ML 1,000 ML IV SCH (11:15)
[2020-07-10] MEDS ORDERED: INSULIN ASPART 100 UNITS/ML 3 ML PEN SC SCH (12:00)
--- NOTE | 2020-07-10 14:24 | Cardiology Progress Note ---
Date of Service July 10, 2020 Assessment & Plan (1) Chest pressure: I believe the patient has noncardiac chest pressure having had cardiac catheterization with findings of angiographically normal coronary arteries. I do not think the mild elevation in her left ventricular end-diastolic filling pressures explain her symptoms, she is not volume overloaded on exam. Clinically, I am uncertain her symptoms are suggestive of pneumonia, she presented with nauseousness and chest pressure, no cough no fever. A COVID-19 screen had been performed on 07/09/2020 and was negative. Consider GI consultation for alternative explanation for chest discomfort especially given presenting symptoms of nauseousness. Topical nitroglycerin has been discontinued. Continue metoprolol for now for blood pressure control. (2) Supratherapeutic INR: Outpatient records reviewed. Her most recent hematology visit had been in November 2020 as an outpatient. 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 In 2015 she was diagnosed with a pulmonary embolism was found to be heterozygous for the prothrombin gene mutation and has been on Coumadin in the interim. Her INR was > 5 on admission, now 1.6 after receiving 2.5 mg of IV vitamin K the evening of 07/09/2020. I called her outpatient pharmacy,[facility], her [id number] cost for a 30-day supply of Eliquis would be $30. I am not certain if she has a mail order option, and I this may need to be investigated further. In the meantime, I recommend DVT prophylaxis dose Lovenox 40 mg daily, pending determination as to whether or not further invasive procedures will be made, prior to reinitiating Coumadin or transitioning her to Eliquis. Admission and Anticipated Discharge Date Admission Date: July 09, 2020 Subjective Patient seen in follow-up having undergone cardiac catheterization earlier today. She still describes ongoing chest pressure. She was found to have angiographically normal coronary arteries. The left ventricular end-diastolic pressure was mildly elevated 21 mmHg. Telemetry reveals stable sinus rhythm. Physical Exam Physical Exam: Temp Pulse Resp BP Pulse Ox 36.9 C 69 20 164/78 H 95 07/10/20 11:17 07/10/20 12:47 07/10/20 12:47 07/10/20 12:47 07/10/20 12:47 Constitutional: WD/WN, vitals as above Respiratory: normal respiratory effort, lungs clear to auscultation Cardiovascular: RRR, no murmur, no edema Gastrointestinal (Abdomen): normal bowel sounds, soft, nontender, no hepatosplenomegaly Neurologic: PERRL, EOMI, accommodation nl, no face palsy, no dysarthria Results & Data ([facility]) Vital Signs (Past 12 Hours) Vital Signs Temp Pulse Resp BP BP Pulse Ox 07/10/20 12:47 69 20 164/78 H 95 07/10/20 12:17 68 20 162/77 H 95 07/10/20 12:04 68 18 135/75 93 07/10/20 11:47 66 20 143/78 H 92 07/10/20 11:40 70 20 136/73 94 07/10/20 11:17 36.9 C 71 20 151/79 H 95 07/10/20 11:13 36.4 C L 61 18 161/68 H 98 07/10/20 10:55 67 18 147/77 H 07/10/20 10:40 67 18 147/77 H 07/10/20 07:02 36.7 C 77 17 146/68 H 96 07/10/20 03:11 36.8 C 69 17 153/81 H 96 Laboratory Results Cardiac Enzymes 07/09/20 07/10/20 Range/Units 13:48 05:21 Troponin I < 0.015 < 0.015 (0-0.045) ng/ml Coagulation 07/09/20 07/10/20 Range/Units 15:06 05:21 PT 44.6 H 16.6 H (9.0-12.0) Seconds APTT 54.1 H* (21.0-31.0) Seconds CBC 07/10/20 Range/Units 05:21 WBC 8.99 (4.8-10.8) K/uL RBC 3.57 L (4.2-5.4) M/uL Hgb 9.5 L (12.0-16.0) g/dL Hct 30.8 L (37-47) % Plt Count 468 H (130-400) K/uL Neut # (Auto) 6.13 (1.4-6.5) K/uL Lymph # (Auto) 2.26 (1.2-3.4) K/uL [place] # (Auto) 0.38 (0.11-0.59) K/uL Eos # (Auto) 0.13 (0-0.5) K/uL Baso # (Auto) 0.02 (0-0.2) K/uL Comprehensive Metabolic Panel 07/10/20 Range/Units 05:21 Sodium 141 (136-145) mmol/L Potassium 3.2 L (3.5-5.1) mmol/L Chloride 108 H (98-107) mmol/L Carbon Dioxide 29 (21-32) mmol/L BUN 6 L D (7-18) mg/dl Creatinine 0.67 (0.6-1.2) mg/dl Glucose 99 (70-99) mg/dl Calcium 8.3 L (8.5-10.1) mg/dl Intake and Output 07/09/20 07/10/20 07/10/20 22:59 06:59 14:59 Intake Total 1530.25 / 2986.917 1251.667 / 2986.917 1280 / 1280 Output Total 700 / 700 600 / 600 Balance 1530.25 / 2286.917 551.667 / 2286.917 680 / 680 Intake: IV 1050.25 / 2281.917 1051.667 / 2281.917 1180 / 1180 Vibramycin 100 mg In D5 100 ml 110 / 220 110 / 110 @ 50 mls/hr IV Q12H VIOLET Rx#: [id number] Aqua-Mephyton 2.5 mg In Nss 50 50.25 / 50.25 ml @ 100.5 mls/hr IV ONE ONE Rx #:[id number] Nss 1000ML 1,000 ml @ 125 mls/ 1000 / 1941.667 941.667 / 4949.173 1244 / 1000 hr IV .Q8H VIOLET Rx#:[id number] Rocephin 2,000 mg In D5w 50 ml 70 / 70 @ 100 mls/hr IV DAILY VIOLET Rx#: [id number] Oral 480 / 705 200 / 705 100 / 100 Output: Urine 700 / 700 600 / 600 Other: Other Intake Source NPO @ 0000 # Unmeasured Voids 2 Weight 85.4 kg
[2020-07-10] MEDS ORDERED: ENOXAPARIN INJ 40 MG/0.4 ML SYR SQ ONE (14:30)
--- NOTE | 2020-07-10 14:31 | Gastrointestinal Consultation ---
Date of Consultation July 10, 2020 Assessment & Plan (1) Nausea & vomiting: Pt is a 70 y/o female admitted mostly for chest pain evaluation, seen for n/v. She reports 2 episodes of nausea/vomiting - when first admitted and this AM after ingestion of liquid K elixir. She denies dysphagia, odynophagia, + mild reflux controlled w Omeprazole at night, no abd pain, bowel habit changes, weight loss. She does have occasional nausea prior to this admission but mild. - Continue diabetic diet - No indication for EGD eval at this time - Continue PPI coverage HS - Symptomatic management w antiemetic prn nausea - Can consider output GES to r/o gastroparesis if n/v persistent - Chest pain eval, management per primary team/Project Management Specialist Supervising Physician Co-Signing Physician Notes Attending attestation I have seen, examined this patient, and agree with the findings and above by our mid-level provider NEVILLE Van, with the following additions: - Doing well and is not having any GI issues right now - Daily PPI - Outpt f/u if necessary History of Present Illness Reason for Consultation: Persistent nausea, eval for possible EGD Requesting Physician: Dr. Rafael Riley Attending Physician: Dr. Jaden Conde History of Present Illness Pt is a 70 y/o female, w PMHx DM II, hx of PE, depression, migraines, sleep apnea who is admitted for chest pain evaluation. She reports having chest tightness/heaviness when she was preparing to go to sleep. PE and CAD ruled out via CT chest and cardiac cath. CP improved w narcotics and Nitroglycerin. GI consulted by primary team for evaluation of persistent nausea. Pt did admit to have n/v when she was admitted and this AM when she was given liquid potassium. However she ate meals well today. She does have occasional nausea prior to admission but nothing that she would consider severe or frequent. Denies any odynophagia, dysphagia. + reflux mostly at night which she takes Omeprazole for. Denies weight loss. No abd pain, changes in bowel habit. Colonoscopy 2010 unremarkable She never had EGD evaluation Allergies Allergy/AdvReac Type Severity Reaction Status Date / Time atropine Allergy Mild ITCHING Verified 07/09/20 02:15 AND HIVES Sulfa (Sulfonamide Allergy Mild MODERATE Verified 07/09/20 02:15 Antibiotics) RASH nickel Allergy Unknown RASH Verified 07/09/20 02:15 naloxone AdvReac Intermediate N/V, Verified 07/09/20 02:15 HALLUCINATIONS, EXTREME ANXIETY,JAW CLENCHING Home Medications Home Medications Medication Instructions Recorded Confirmed Type albuterol sulfate 90 mcg/actuation 2 puffs INH Q4 PRN 09/02/18 07/09/20 History aerosol inhaler aspirin 81 mg tablet,delayed 81 mg PO DAILY 09/02/18 07/09/20 History release atorvastatin 10 mg tablet 10 mg PO DAILY 09/02/18 07/09/20 History cholecalciferol (vitamin D3) 25 5,000 units PO DAILY 09/02/18 07/09/20 History mcg (1,000 unit) capsule insulin aspart U-100 100 unit/mL See Rx Instructions .ROUTE 09/02/18 07/09/20 History subcutaneous cartridge .COMPLEX ml insulin glargine 100 unit/mL (3 14 units SQ HS ml 09/02/18 07/09/20 History mL) subcutaneous pen lifitegrast 5 % eye drops in a 1 drops OPB BID ea 09/02/18 07/09/20 History dropperette lisinopril 10 mg tablet 10 mg PO DAILY 09/02/18 07/09/20 History magnesium oxide 400 mg PO DAILY cap 09/02/18 07/09/20 History metformin 1,000 mg tablet 1,000 mg PO BID 09/02/18 07/09/20 History multivitamin 1 cap PO DAILY 09/02/18 07/09/20 History omeprazole 20 mg capsule,delayed 20 mg PO DAILY 09/02/18 07/09/20 History release polyethylene glycol 3350 17 17 gm PO DAILY gm 09/02/18 07/09/20 History gram/dose oral powder sumatriptan succinate 100 mg tablet 100 mg PO .use as directed PRN tab 09/02/18 07/09/20 History timolol maleate 0.5 % once daily 1 drops OPL QAM ml 09/02/18 07/09/20 History eye drops warfarin 5 mg tablet 2.5 - 5 mg PO QPM tab 09/02/18 07/09/20 History Synchromed Pump Refill See Rx Instructions .ROUTE .COMPLEX 07/09/20 07/09/20 History artifi.tears(hypromellose)(PF) 1 drp OPHTHALMIC (EYE) QID PRN 07/09/20 07/09/20 History escitalopram oxalate 20 mg PO DAILY 07/09/20 07/09/20 History prednisolone acetate 1 drp OPR QID 07/09/20 07/09/20 History promethazine 25 mg PO Q6 PRN 07/09/20 07/09/20 History Patient History Medical History Cervical postlaminectomy syndrome Chronic pain of left knee Depression Lumbar postlaminectomy syndrome Migraine Monoclonal paraproteinemia "MGUS" Presence of intrathecal pump Primary central sleep apnea Pulmonary embolism 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) Sacroiliitis Severe dizziness SOB (shortness of breath) Surgical History H/O colonoscopy H/O cystoscopy H/O elbow surgery H/O eye surgery History of carpal tunnel surgery History of hysterectomy S/P cervical spinal fusion S/P cholecystectomy S/P lumbar laminectomy Family History Father Coronary heart disease Social History Smoking Status: Never smoker Hx Alcohol Use: Yes (1-2x/month) Alcohol type: wine Hx Substance Use: No Preferred Language: Hebrew Communication Ability: Effective Well Digger Required: No Beliefs That Will Affect Care: None marital status: Current Living Situation: Spouse Other Information That Helps Us Care for You: No Feels Safe at Home: Yes Safety Concerns: Feels Safe At This Time Review of Systems Review of Systems: All systems reviewed & are unremarkable except as noted in HPI & below Physical Exam Constitutional: WD/WN, vitals as above well groomed, cooperative and comfortable Eyes: PERRL, conjunctivae normal, anicteric sclerae ENMT: external ear and nose normal, oropharynx normal Respiratory: normal respiratory effort, lungs clear to auscultation Cardiovascular: RRR, no murmur, no edema Gastrointestinal (Abdomen): normal bowel sounds, soft, nontender, no hepatosplenomegaly Skin: no rashes, warm and dry no jaundice Psychiatric: A+Ox3, euthymic affect Lymphatic: no lymphedema Results & Data ([facility]) Vital Signs (Past 12 Hours) Vital Signs Temp Pulse Resp BP BP Pulse Ox 07/10/20 12:47 69 20 164/78 H 95 07/10/20 12:17 68 20 162/77 H 95 07/10/20 12:04 68 18 135/75 93 07/10/20 11:47 66 20 143/78 H 92 07/10/20 11:40 70 20 136/73 94 07/10/20 11:17 36.9 C 71 20 151/79 H 95 07/10/20 11:13 36.4 C L 61 18 161/68 H 98 07/10/20 10:55 67 18 147/77 H 07/10/20 10:40 67 18 147/77 H 07/10/20 07:02 36.7 C 77 17 146/68 H 96 07/10/20 03:11 36.8 C 69 17 153/81 H 96
--- NOTE | 2020-07-10 15:09 | Psychiatric Consultation ---
Date of Consultation July 10, 2020 Impression / Recommendations Impression Dr. Moon Chan was directly involved in review and discussion of the patient's case and participated in medical decision making regarding treatment recommendations. RECOMMENDATIONS: 07/10 - Psychiatric consultation requested by hospitalist service to assess for anxiety as possible contributing factor leading to chest pain. - History obtained from both the patient and her - both admit to history of escitalopram for the past 5 years, for what seems to be anxiety based on their reports ("cold sweats and restlessness"). Pt stated escitalopram had been helpful for these concerns. Both patient and deny recent concerns related to depressed mood or increased anxiety, with the exception of a few days prior to her hospitalization, primarily related to her physical complaints on presentation. We did discuss that the current episodes of chest pain may still be related to anxiety, but possibly situational anxiety related to her hospitalization and concerns about her health. - Given limited history of mood or anxiety concerns prior to onset of physical concerns, would suggest symptomatic treatment of anxiety. Will order hydroxyzine 10mg that can be utilized every 4 hours as needed for anxiety/chest pain. If dose is ineffective, could titrate to 25mg q4h prn. Risks, benefits, and potential side effects of the medication were reviewed with the patient and her . - Pt denies SI/HI, A/V hallucinations, and other acute psychiatric symptoms. No indication for inpatient psychiatric treatment. - Appreciate opportunity to participate in the care of this patient. Please reach out to our service with any additional questions or updates. Risk Factors Assessment Do You Have Access To A Gun?: No Psych History Identifying Data 70-year-old female admitted medically on 07/09/2020 after presenting to the ED with reports of nausea, vomiting, and general malaise. Pt also reported chest pain with radiation to the left side and back - therefore cardiology work-up was initiated. After review of cardiac testing, it was presumed that acute chest pain is likely non-cardiac in nature. Psychiatric consultation was requested by hospitalist team to evaluate patient for anxiety. Chief Complaint "Um, I just really haven't been feeling well. And we don't know what it is." History of Present Illness Tanner Sheth is a 70-year-old female who presented to the ED with complaints of nausea, vomiting, and general malaise. Pt was admitted for further medical work-up on 07/09/2020. COVID-19 testing was negative and cardiac work-up was initiated due to patient's reports of chest pain with radiation to her left side and back. Cardiac catheterization, among other studies, were completed and cause of acute chest pain was felt to be noncardiac in nature. Psychiatric consultation was requested by hospitalist service to evaluate patient for anxiety, as possible noncardiac contributor to chest pain. Pt is cooperative with psychiatric evaluation. , Domenic, is present at bedside. Pt permits his presence during our conversation and allows him to provide collateral information. Pt states that she presented to the ED with nausea and vomiting. She states "I just really haven't been feeling well. And we don't know what it is." Pt states symptoms were initially thought to be related to a UTI, then suspicion of pneumonia. She states that chest pain had been occurring intermittently, and that while she is happy it is likely noncardiac, she is still worried about what is going on. Pt does admit to increased anxiety, but feels it is more connected with the onset of these various physical concerns and her present hospitalization. She denies history of significant anxiety or symptoms of anxiety prior to the onset of these physical concerns. verifies that he believes the patient has only been demonstrating anxiety "in the last few days. We're both anxious." The deny feeling that significant medication adjustments are necessary, but are willing to consider a medication that can be utilized on an as needed basis. Pt does admit she was started on escitalopram about 5 years ago, "after my pulmonary embolism. It just took a while to get on top of things. I was having cold sweats and restlessness. The Lexapro helped with that." Pt is not necessarily able to label these symptoms as anxiety, but does admit the antidepressant medication has continued to be helpful. Pt denies SI/HI, SIB, and history of psychosis. She denies history of therapy or outpatient psychiatric providers. No history of inpatient psychiatric hospitalizations. Pt and deny other needs or concerns at this time. Past Psychiatric History Current Psychiatric Diagnosis: Anxiety Outpatient Services: None - escitalopram is prescribed by patient's PCP. Previous Psych Admissions: None Do You Have Access To A Gun?: No History of Previous Suicide Attempt: No Past Medication Trials: Pt reports escitalopram was initiated for "cold sweats and restlessness" (likely with concern that these were symptoms of anxiety). Denies previous medications to treat psychiatric conditions. Allergies Allergy/AdvReac Type Severity Reaction Status Date / Time atropine Allergy Mild ITCHING Verified 07/09/20 02:15 AND HIVES Sulfa (Sulfonamide Allergy Mild MODERATE Verified 07/09/20 02:15 Antibiotics) RASH nickel Allergy Unknown RASH Verified 07/09/20 02:15 naloxone AdvReac Intermediate N/V, Verified 07/09/20 02:15 HALLUCINATIONS, EXTREME ANXIETY,JAW CLENCHING Home Medications Home Medications Medication Instructions Recorded Confirmed Type albuterol sulfate 90 mcg/actuation 2 puffs INH Q4 PRN 09/02/18 07/09/20 History aerosol inhaler aspirin 81 mg tablet,delayed 81 mg PO DAILY 09/02/18 07/09/20 History release atorvastatin 10 mg tablet 10 mg PO DAILY 09/02/18 07/09/20 History cholecalciferol (vitamin D3) 25 5,000 units PO DAILY 09/02/18 07/09/20 History mcg (1,000 unit) capsule insulin aspart U-100 100 unit/mL See Rx Instructions .ROUTE 09/02/18 07/09/20 History subcutaneous cartridge .COMPLEX ml insulin glargine 100 unit/mL (3 14 units SQ HS ml 09/02/18 07/09/20 History mL) subcutaneous pen lifitegrast 5 % eye drops in a 1 drops OPB BID ea 09/02/18 07/09/20 History dropperette lisinopril 10 mg tablet 10 mg PO DAILY 09/02/18 07/09/20 History magnesium oxide 400 mg PO DAILY cap 09/02/18 07/09/20 History metformin 1,000 mg tablet 1,000 mg PO BID 09/02/18 07/09/20 History multivitamin 1 cap PO DAILY 09/02/18 07/09/20 History omeprazole 20 mg capsule,delayed 20 mg PO DAILY 09/02/18 07/09/20 History release polyethylene glycol 3350 17 17 gm PO DAILY gm 09/02/18 07/09/20 History gram/dose oral powder sumatriptan succinate 100 mg tablet 100 mg PO .use as directed PRN tab 09/02/18 07/09/20 History timolol maleate 0.5 % once daily 1 drops OPL QAM ml 09/02/18 07/09/20 History eye drops warfarin 5 mg tablet 2.5 - 5 mg PO QPM tab 09/02/18 07/09/20 History Synchromed Pump Refill See Rx Instructions .ROUTE .COMPLEX 07/09/20 07/09/20 History artifi.tears(hypromellose)(PF) 1 drp OPHTHALMIC (EYE) QID PRN 07/09/20 07/09/20 History escitalopram oxalate 20 mg PO DAILY 07/09/20 07/09/20 History prednisolone acetate 1 drp OPR QID 07/09/20 07/09/20 History promethazine 25 mg PO Q6 PRN 07/09/20 07/09/20 History Family History No known family history of psychiatric conditions. Substance Abuse History Denies significant alcohol or tobacco use. Denies use of illicit substances. Personal History Living Arrangements: Home Marital Status: (to , Dagoberto) Patient History Medical History Cervical postlaminectomy syndrome Chronic pain of left knee Depression Lumbar postlaminectomy syndrome Migraine Monoclonal paraproteinemia "MGUS" Presence of intrathecal pump Primary central sleep apnea Pulmonary embolism 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) Sacroiliitis Severe dizziness SOB (shortness of breath) Surgical History H/O colonoscopy H/O cystoscopy H/O elbow surgery H/O eye surgery History of carpal tunnel surgery History of hysterectomy S/P cervical spinal fusion S/P cholecystectomy S/P lumbar laminectomy Family History Father Coronary heart disease Social History Smoking Status: Never smoker Hx Alcohol Use: Yes (1-2x/month) Alcohol type: wine Hx Substance Use: No Preferred Language: [place] Communication Ability: Effective Space Operations Officer Required: No Beliefs That Will Affect Care: None marital status: Current Living Situation: Spouse Other Information That Helps Us Care for You: No Feels Safe at Home: Yes Safety Concerns: Feels Safe At This Time Physical Exam Psychiatric: Orientation: alert, oriented x 3 and cooperative (and pleasant) Apperance: appropriately dressed, appropriately groomed and appeared stated age Obese-appearing female, laying in bed in no acute distress. Pt is appropriately dressed for setting, wearing pajama shorts under her hospital gown. Grooming and hygiene are appropriate given clinical setting. Eye Contact: good eye contact Motor Behavior: no abnormal motor movements (observed while laying in bed) Speech: normal rate/rhythm/volume of speech (monotone speech) Affect: + blunted affect Mood: + anxious mood Thought Process: goal directed thought process and clear/coherent thought process Thought Content: reality based without delusions; no hopelessness and no worthlessness Suicidal Thoughts: denies suicidal thoughts, denies suicidal pl an and denies suicidal intent Homicidal Thoughts: denies homicidal thoughts Hallucinations: no auditory hallucinations and no visual hallucinations Cognition: recent memory grossly intact, attention grossly intact and language grossly intact Estimated Intelligence: consistent with education level Insight: + fair insight Judgement: + fair judgement Vital Signs (Past 24 Hours): Last Vital Signs Temp 36.9 C 07/10/20 11:17 Pulse 67 07/10/20 14:41 Resp 18 07/10/20 14:41 BP 154/73 H 07/10/20 14:41 Pulse Ox 93 07/10/20 14:41 Review of Systems Constitutional: denied, reports resolution of headache she experienced this morning Cardiovascular: denied, reports an episode of chest pain this morning that is now resolved Respiratory: denied Gastrointestinal: denied, reports resolution of nausea she experienced this morning Neurological: denied Musculoskeletal: reports chronic back pain (has a pain pump) Psychiatric: denies symptoms other than stated above Total of at least 10 systems reviewed, pertinent positives as above and in HPI. Results & Data (PSY) Medications Administered Acetaminophen (Acetaminophen 325 Mg Tab) 650 mg PO Q4H PRN PRN Reason: Pain or Fever Stop: 08/08/20 08:00 Last Admin: 07/10/20 08:24 Dose: 650 mg Documented by: [id number] Aspirin (Ecotrin Ectab) 81 mg PO DAILY [facility] Stop: 08/08/20 08:59 Last Admin: 07/10/20 08:25 Dose: 81 mg Documented by: [id number] Admin: 07/09/20 09:01 Dose: 81 mg Documented by: [id number] Atorvastatin Calcium (Lipitor) 10 mg PO DAILY [facility] Stop: 08/08/20 08:59 Last Admin: 07/10/20 07:14 Dose: 10 mg Documented by: [id number] Admin: 07/09/20 09:01 Dose: 10 mg Documented by: [id number] Escitalopram Oxalate (Lexapro Tab) 20 mg PO DAILY [facility] Stop: 08/08/20 08:59 Last Admin: 07/10/20 07:13 Dose: 20 mg Documented by: [id number] Admin: 07/09/20 09:01 Dose: 20 mg Documented by: [id number] Ceftriaxone Sodium 2,000 mg/ (Dextrose) 70 mls @ 100 mls/hr IV DAILY [facility]; Prot ocol Stop: 07/16/20 08:59 Last Infusion: 07/10/20 10:02 Dose: 0 mls/hr Documented by: [id number] Admin: 07/10/20 09:04 Dose: 100 mls/hr Documented by: [id number] Infusion: 07/09/20 09:42 Dose: 0 mls/hr Documented by: [id number] Admin: 07/09/20 08:59 Dose: 100 mls/hr Documented by: [id number] Doxycycline Hyclate 100 mg/ (Dextrose) 110 mls @ 50 mls/hr IV Q12H [facility] Stop: 07/16/20 08:59 Last Infusion: 07/10/20 11:26 Dose: 0 mls/hr Documented by: [id number] Admin: 07/10/20 09:04 Dose: 50 mls/hr Documented by: [id number] Infusion: 07/09/20 23:54 Dose: 0 mls/hr Documented by: [id number] Admin: 07/09/20 20:53 Dose: 50 mls/hr Documented by: [id number] Infusion: 07/09/20 11:15 Dose: 0 mls/hr Documented by: [id number] Admin: 07/09/20 08:59 Dose: 50 mls/hr Documented by: [id number] Insulin Aspart (Insulin Aspart 100 Units/Ml 3 Ml Pen) 0 units SC ACHS [facility] Stop: 08/09/20 11:49 Last Admin: 07/10/20 13:08 Dose: 2 units Documented by: [id number] Cosigned by: [id number] Insulin Glargine (Lantus Solostar Pen) 14 units SQ HS [facility] Stop: 08/08/20 20:59 Last Admin: 07/09/20 20:54 Dose: 14 units Documented by: [id number] Cosigned by: [id number] Lisinopril (Zestril) 10 mg PO DAILY [facility] Stop: 08/08/20 08:59 Last Admin: 07/10/20 07:13 Dose: 10 mg Documented by: [id number] Admin: 07/09/20 09:00 Dose: 10 mg Documented by: [id number] Magnesium Oxide (Mag-Ox) 400 mg PO DAILY [facility] Stop: 08/08/20 08:59 Last Admin: 07/10/20 07:13 Dose: 400 mg Documented by: [id number] Admin: 07/09/20 09:01 Dose: 400 mg Documented by: [id number] Metoprolol Tartrate (Lopressor) 25 mg PO BID [facility] Stop: 08/09/20 08:59 Last Admin: 07/10/20 07:14 Dose: 25 mg Documented by: [id number] Miscellaneous (Order Awaiting Action) 1 ea N/A QS [facility] Stop: 08/08/20 15:59 Last Admin: 07/10/20 14:45 Dose: Not Given Documented by: [id number] Admin: 07/10/20 07:19 Dose: Not Given Documented by: [id number] Admin: 07/10/20 00:12 Dose: Not Given Documented by: [id number] Admin: 07/09/20 15:32 Dose: Not Given Documented by: [id number] Morphine Sulfate (Morphine Sulfate 2 Mg/Ml Carp) 2 mg IV Q6H PRN PRN Reason: Pain Stop: 07/23/20 17:21 Last Admin: 07/10/20 13:06 Dose: 2 mg Documented by: [id number] Multivitamins (Multivitamin Tab) 1 tab PO QAM [facility] Stop: 08/08/20 08:59 Last Admin: 07/10/20 07:14 Dose: 1 tab Documented by: [id number] Admin: 07/09/20 09:01 Dose: 1 tab Documented by: [id number] Nitroglycerin (Nitrostat) 0.4 mg SL PRN PRN PRN Reason: Chest Pain Stop: 08/08/20 10:10 Last Admin: 07/09/20 17:08 Dose: 0.4 mg Documented by: [id number] Ondansetron HCl (Zofran) 4 mg IV Q6H PRN PRN Reason: Nausea Stop: 08/08/20 08:00 Last Admin: 07/10/20 10:06 Dose: 4 mg Documented by: [id number] Admin: 07/10/20 07:37 Dose: 4 mg Documented by: [id number] Admin: 07/09/20 09:55 Dose: 4 mg Documented by: [id number] Pantoprazole Sodium (Protonix) 40 mg PO DAILY [facility] Stop: 08/08/20 08:59 Last Admin: 07/10/20 07:14 Dose: 40 mg Documented by: [id number] Admin: 07/09/20 09:01 Dose: 40 mg Documented by: [id number] Polyethylene Glycol (Miralax Powder Packet) 17 gm PO DAILY [facility] Stop: 08/08/20 08:59 Last Admin: 07/10/20 07:15 Dose: Not Given Documented by: [id number] Admin: 07/09/20 09:00 Dose: 17 gm Documented by: [id number] Prednisolone Acetate (Pred Forte 1%) 1 drops OP QID [facility] Stop: 08/08/20 12:59 Last Admin: 07/10/20 13:07 Dose: 1 drops Documented by: [id number] Admin: 07/10/20 07:15 Dose: 1 drops Documented by: [id number] Admin: 07/09/20 20:55 Dose: 1 drops Documented by: [id number] Admin: 07/09/20 17:08 Dose: 1 drops Documented by: [id number] Admin: 07/09/20 13:04 Dose: 1 drops Documented by: [id number] Sumatriptan Succinate (Imitrex) 100 mg PO DAILY PRN PRN Reason: migraine headache Stop: 08/08/20 08:00 Last Admin: 07/10/20 00:28 Dose: 100 mg Documented by: [id number] Timolol Maleate (Timoptic 0.5% Oph) 1 drops OPL QAM [facility] Stop: 08/08/20 08:59 Last Admin: 07/10/20 07:16 Dose: 1 drops Documented by: [id number] Admin: 07/09/20 09:01 Dose: 1 drops Documented by: [id number] Vitamin D (Vitamin D3) 5,000 units PO DAILY [facility] Stop: 08/08/20 08:59 Last Admin: 07/10/20 07:14 Dose: 5,000 units Documented by: [id number] Admin: 07/09/20 09:00 Dose: 5,000 units Documented by: [id number] Coding Level of Care Code 13887 [facility] Intl Hosp Care Lvl 3
[2020-07-10] MEDS ORDERED: hydrOXYzine HCl 10 MG TAB PO PRN (15:15)
--- NOTE | 2020-07-10 18:20 | Hospitalist Progress Note ---
Date of Service July 10, 2020 Assessment & Plan (1) Chest pressure: Patient is a 70 yr female who presents with not feeling well, nausea, vomiting, chest pain and was found to be hypoxic in the ER. Chest Pain: Likely non cardiac R/O ACS: Chest CT:Right middle lobe, lingular and bilateral lower lobe airspace opacities consistent with atelectasis. No consolidation to suggest pneumonia. No acute findings within the chest. ECHO: Normal left ventricular wall thickness. Left ventricular wall motion is normal. Ventricular systolic function is normal. No regional wall motion abnormalities. Ejection fraction 60 to 65%. Grade 1 diastolic dysfunction. S/P Cardiac Cath:Normal coronary arteries. Elevated intracardiac filling pressure Troponin X 3: Negative Continue aspirin 81 mg daily, atorvastatin Continue metoprolol 25 mg twice daily Appreciate cardiology input Coumadin held for now-- Likely transition to Eliquis or restart Coumadin Appreciated GI/Psychiatry input Plan for EGD as outpatient Added hydroxyzine for anxiety Supratherapeutic INR--Resolved Hold Coumadin for now Received vitamin K Monitor INR Lovenox SQ for now Nausea/vomiting/Abdominal discomfort UTI ruled out Urine culture: Negative Received Rocephin empirically Abnormal CT chest Hypoxia H/O Central Sleep Apnea Normal Procalcitonin CT as above Negative COVID PCR Continue BiPAP at bedtime Titrate off of oxygen as able Plan to DC abx tmw if no signs of infection H/O PE Coumadin on hold Resume Coumadin as able Vs transition to Eliquis Monitor INR Depression: On Lexapro Hypertension Continue lisinopril Hyperlipidemia On statin DM II Continue ISS, basal insulin Monitor BGs Hold p.o. meds for now Chronic back pain H/O back surgeries On pain pump H/O hypothyroidism Not on Levothyroxine Monitor TSH H/O Monoclonal Paraproteinemia Follows with Oncology as outpatient DVT Px: Lovenox SQ Code Status Full Code DISPOSITION: Expect to discharge home Admission and Anticipated Discharge Date Admission Date: July 09, 2020 Subjective Patient is seen and examined at bedside Had cardiac catheterization today Still complains of ongoing chest pressure but improved from yesterday Also reports anxiety and nausea Offers no other complaints Review of Systems Review of Systems: All systems reviewed & are unremarkable except as noted in HPI & below Physical Exam Physical Exam: Physical Exam: Vitals signs as noted above General Appearance:Ill appearing, Moderately built and nourished Head: normocephalic, Atraumatic Eyes: normal inspection, EOMI Neck: supple, Trachea midline Respiratory/Chest: Normal breath sounds, CTA, No accessory muscle use Cardiovascular: S1, S2, No murmur Chest: Reproducible chest discomfort Abdomen/GI:Soft, Non tender, Bowel sounds present Extremities/Musculoskelatal:normal inspection, no edema Neurologic/Psych:AAOX3, grossly no focal neurological deficits Skin: normal color, warm Results & Data Results & Data [facility] Vital Signs (Past 12 Hours) Vital Signs Temp Pulse Pulse Resp BP BP Pulse Ox 07/10/20 15:22 70 07/10/20 15:02 37.1 C 68 18 142/75 H 97 07/10/20 14:41 67 18 154/73 H 93 07/10/20 12:47 69 20 164/78 H 95 07/10/20 12:17 68 20 162/77 H 95 07/10/20 12:04 68 18 135/75 93 07/10/20 11:47 66 20 143/78 H 92 07/10/20 11:40 70 20 136/73 94 07/10/20 11:17 36.9 C 71 20 151/79 H 95 07/10/20 11:13 36.4 C L 61 18 161/68 H 98 07/10/20 10:55 67 18 147/77 H 07/10/20 10:40 67 18 147/77 H 07/10/20 07:02 36.7 C 77 17 146/68 H 96 Laboratory Results Short CBC 07/10/20 Range/Units 05:21 WBC 8.99 (4.8-10.8) K/uL Hgb 9.5 L (12.0-16.0) g/dL Hct 30.8 L (37-47) % Plt Count 468 H (130-400) K/uL BMP 07/10/20 05:21 Sodium 141 Potassium 3.2 L Chloride 108 H Carbon Dioxide 29 BUN 6 L D Creatinine 0.67 Glucose 99 Calcium 8.3 L Cardiac Enzymes 07/10/20 Range/Units 05:21 Troponin I < 0.015 (0-0.045) ng/ml
[2020-07-10] MEDS: INSULIN GLARGINE SOLOSTAR 100 UNITS/ML 3 ML PEN SQ SCH (20:34)
--- NOTE | 2020-07-10 23:32 | Electrocardiogram Report ---
Test Reason : Blood Pressure : / mmHG Vent. Rate : 073 BPM Atrial Rate : 073 BPM P-R Int : 172 ms QRS Dur : 096 ms QT Int : 394 ms P-R-T Axes : 036 -24 -16 degrees QTc Int : 434 ms Normal sinus rhythm Minimal voltage criteria for LVH, may be normal variant Nonspecific T wave abnormality Abnormal ECG When compared with ECG of 15-DEC-2017 11:31, T wave inversion now evident in Inferior leads Nonspecific T wave abnormality now evident in Anterior leads Confirmed by Jean Grimes ([id number]) on 07/10/2020 11:32:19 PM Referred By: REFERRED SELF Confirmed By:Jean Grimes
[2020-07-11] MEDS ORDERED: lisinopriL 20 MG TAB PO SCH (04:30)
--- NOTE | 2020-07-11 05:57 | Electrocardiogram Report ---
Test Reason : Blood Pressure : / mmHG Vent. Rate : 100 BPM Atrial Rate : 100 BPM P-R Int : 176 ms QRS Dur : 088 ms QT Int : 340 ms P-R-T Axes : 050 -14 052 degrees QTc Int : 438 ms Normal sinus rhythm Nonspecific ST and T wave abnormality Abnormal ECG When compared with ECG of 09-JUL-2020 00:34, Nonspecific T wave abnormality has replaced inverted T waves in Inferior leads Confirmed by Jean Grimes ([id number]) on 07/11/2020 5:56:49 AM Referred By: REFERRED SELF Confirmed By:Jean Grimes
[2020-07-11 06:14] LABS: Hematocrit (blood only) 31.6 % (37-47); Mean Corpuscular Hemoglobin 27.5 pg (25-34); Mean Corpuscular Hgb Conc 31.6 g/dL (32-36); Mean Corpuscular Volume 86.8 fL (80-100); Mean Platelet Volume 9.4 fL (7.4-10.4); Platelet Count 461 K/uL (130-400); RDW Coefficient of Variation 17.4 % (11.5-14.5); RDW Standard Deviation 55.6 fL (36.4-46.3); Red Blood Count 3.64 M/uL (4.2-5.4); White Blood Count 6.92 K/uL (4.8-10.8)
--- NOTE | 2020-07-11 06:14 | Electrocardiogram Report ---
Test Reason : Blood Pressure : / mmHG Vent. Rate : 077 BPM Atrial Rate : 077 BPM P-R Int : 170 ms QRS Dur : 088 ms QT Int : 396 ms P-R-T Axes : 042 -12 015 degrees QTc Int : 448 ms Normal sinus rhythm Normal ECG When compared with ECG of 09-JUL-2020 12:33, No significant change was found Confirmed by Jean Grimes ([id number]) on 07/11/2020 6:13:53 AM Referred By: REFERRED SELF Confirmed By:Jean Grimes
[2020-07-11 06:22] LABS: INR 1.3 (0.9-1.1); Prothrombin Time 13.1 Seconds (9.0-12.0)
[2020-07-11 06:47] LABS: Calcium 8.3 mg/dl (8.5-10.1); Creatinine Clr Calc Pharmacy 69.6 ml/min; Est GFR (African American) 88.6; Est GFR (Non-African American) 76.5; Magnesium 1.9 mg/dl (1.8-2.4); Potassium 3.7 mmol/L (3.5-5.1)
[2020-07-11] MEDS: INSULIN ASPART 100 UNITS/ML 3 ML PEN SC SCH ×2 (08:21→12:01)
[2020-07-11] MEDS: CHOLECALCIFEROL 1,000 UNITS 25 MCG TAB PO SCH (08:23)
[2020-07-11] MEDS: MULTIVITAMIN TAB PO SCH (08:23)
[2020-07-11] MEDS: PANTOprazole 40 MG TAB PO SCH (08:23)
[2020-07-11] MEDS: ASPIRIN 81 MG ECTAB PO SCH (08:24)
[2020-07-11] MEDS: ATORVASTATIN 10 MG TAB PO SCH (08:24)
[2020-07-11] MEDS: ESCITALOPRAM OXALATE 20 MG TAB PO SCH (08:24)
[2020-07-11] MEDS: METOPROLOL TARTRATE 25 MG TAB PO SCH (08:24)
[2020-07-11] MEDS: prednisoLONE acetate 1% OP SUSP 5 ML BTL OP SCH ×2 (08:24→12:01)
[2020-07-11] MEDS: MAGNESIUM OXIDE 400 MG TAB PO SCH (08:24)
[2020-07-11] MEDS: TIMOLOL MALEATE 0.5% OP SOLN 5 ML BTL OPL SCH (08:25)
[2020-07-11] MEDS: POLYETHYLENE (MIRALAX) 17 GM PACK PO SCH (08:25)
[2020-07-11] MEDS ORDERED: ENOXAPARIN INJ 40 MG/0.4 ML SYR SQ SCH (09:00)
[2020-07-11] MEDS ORDERED: DOXYCYCLINE HYCLATE 100 MG CAP PO SCH (09:00)
[2020-07-11 11:58] VITALS: BP 155/78; TEMP 97.9
--- NOTE | 2020-07-11 12:48 | XRay Report ---
XR chest 2V PA/lateral HISTORY: 70 years-old Female Hypoxia acute hypoxia COMPARISON: Chest radiograph 07/09/2020 TECHNIQUE: PA and lateral views of the chest FINDINGS: Cardiac silhouette is mildly enlarged, unchanged. Pulmonary vascular congestion redemonstrated. Trace pleural effusions. No pneumothorax. Linear subsegmental atelectasis of the lateral left midlung. Mil d bibasilar densities suggest probable atelectasis. Cervical and lumbar spine fusion hardware. Degene rative changes of the shoulders and spine. IMPRESSION: 1. Cardiomegaly with stable pulmonary vascular congestion. 2. Trace pleural effusions. ACT 112: Negative or not required by law. The above report was generated using voice recognition software. It may contain grammatical, syntax o r spelling errors. Electronically signed by: Gordo Cruz M.D. 07/11/2020 12:47 PM
[2020-07-11] MEDS ORDERED: FUROSEMIDE 20 MG TAB PO SCH (13:30)
--- NOTE | 2020-07-11 13:47 | Hospitalist Progress Note ---
Date of Service July 11, 2020 Assessment & Plan (1) Chest pressure: Patient is a 70 yr female who presents with not feeling well, nausea, vomiting, chest pain and was found to be hypoxic in the ER. Chest Pain: Likely non cardiac R/O ACS: Chest CT:Right middle lobe, lingular and bilateral lower lobe airspace opacities consistent with atelectasis. No consolidation to suggest pneumonia. No acute findings within the chest. ECHO: Normal left ventricular wall thickness. Left ventricular wall motion is normal. Ventricular systolic function is normal. No regional wall motion abnormalities. Ejection fraction 60 to 65%. Grade 1 diastolic dysfunction. S/P Cardiac Cath:Normal coronary arteries. Elevated intracardiac filling pressure Troponin X 3: Negative Continue aspirin 81 mg daily, atorvastatin Continue metoprolol 25 mg twice daily Appreciate cardiology input Coumadin transitioned to Eliquis Appreciated GI/Psychiatry input Plan for EGD as outpatient Added hydroxyzine for anxiety Supratherapeutic INR--Resolved Coumadin transitioned to Eliquis Nausea/vomiting/Abdominal discomfort UTI ruled out Urine culture: Negative Received Rocephin empirically Resolved Abnormal CT chest Hypoxia Pulmonary Vascular Congestion H/O Central Sleep Apnea Normal Procalcitonin CT as above Negative COVID PCR Continue BiPAP at bedtime for sleep apnea Titrated off of oxygen Grade I diastolic dysfunction likely contributing to vascular congestion Started on lasix 20mg 3 times per week as recommended by cardiology H/O PE Coumadin discontinued Started on Eliquis Depression: Anxiety: On Lexapro Vistaril PRN Appreciate Psychiatry Input Hypertension Continue lisinopril Hyperlipidemia On statin DM II Continue ISS, basal insulin Monitor BGs Hold p.o. meds for now Chronic back pain H/O back surgeries On pain pump H/O hypothyroidism Not on Levothyroxine TSH mildly elevated Free T4 Normal Needs repeat Thyroid function test as outpatient H/O Monoclonal Paraproteinemia Follows with Oncology as outpatient DVT Px: Lovenox SQ Code Status Full Code DISPOSITION: Plan to discharge home today Admission and Anticipated Discharge Date Admission Date: July 09, 2020 Subjective Patient is seen and examined at bedside Doing much better today Chest pain, anxiety, nausea resolved Denies cough, SOB, dizziness, abd pain CXR suggestive of mild pulmonary vascular congestion Discussed with cardiology today Plan to start on Lasix 20 mg 3 times a week 2 step:did not require oxygen Offers no other complaints Review of Systems Review of Systems: All systems reviewed & are unremarkable except as noted in HPI & below Physical Exam Physical Exam: Physical Exam: Vitals signs as noted above General Appearance:Ill appearing, Moderately built and nourished Head: normocephalic, Atraumatic Eyes: normal inspection, EOMI Neck: supple, Trachea midline Respiratory/Chest: Normal breath sounds, CTA, No accessory muscle use Cardiovascular: S1, S2, No murmur Chest: Reproducible chest discomfort Abdomen/GI:Soft, Non tender, Bowel sounds present Extremities/Musculoskelatal:normal inspection, no edema Neurologic/Psych:AAOX3, grossly no focal neurological deficits Skin: normal color, warm Results & Data Results & Data ([facility]) Vital Signs (Past 12 Hours) Vital Signs Temp Pulse Pulse Pulse Pulse Pulse Resp 07/11/20 13:22 79 71 72 07/11/20 11:56 36.6 C 67 19 07/11/20 07:55 36.5 C 67 18 07/11/20 07:34 63 07/11/20 04:09 36.8 C 59 L 18 Resp Resp Resp BP BP Pulse Ox Pulse Ox 07/11/20 13:22 22 20 19 90 07/11/20 11:56 155/78 H 98 07/11/20 07:55 176/81 H 93 07/11/20 07:34 07/11/20 04:09 175/80 H 94 Pulse Ox Pulse Ox 07/11/20 13:22 91 95 07/11/20 11:56 07/11/20 07:55 07/11/20 07:34 07/11/20 04:09 Laboratory Results Short CBC 07/11/20 Range/Units 05:33 WBC 6.92 (4.8-10.8) K/uL Hgb 10.0 L (12.0-16.0) g/dL Hct 31.6 L (37-47) % Plt Count 461 H (130-400) K/uL BMP 07/11/20 05:33 Sodium 143 Potassium 3.7 D Chloride 109 H Carbon Dioxide 30 BUN 10 Creatinine 0.78 Glucose 134 H Calcium 8.3 L
--- NOTE | 2020-07-11 14:19 | Discharge Summary ---
Date of Service July 11, 2020 Admission HPI Per Admitting Provider CHIEF COMPLAINT: Nausea, vomiting and not feeling well. HISTORY OF PRESENT ILLNESS: This is a 70-year-old female with past medical history significant for type 2 diabetes, hypothyroidism, history of dyspnea, hypertension, GERD, vitamin D deficiency, history of L4-L5 herniated nucleus pulposus, carpal tunnel syndrome, cervical spondylosis, restless leg syndrome, acute angle closure glaucoma, cauda equina syndrome without mention of neurogenic bladder, thoracic and lumbosacral neuritis, retinal disorder, heterozygous for prothrombin mutation, monoclonal paraproteinemia, major depression, post laminectomy syndrome of lumbar region, primary central sleep apnea, history of pulmonary embolism, depression, presents with illness, not feeling well for the last few days. For the last 4 days, she is having urinary symptoms with increased frequency of urination, some pressure like feeling in the lower abdomen.Last night she felt very agitated and she was really nauseous and vomited 1 time at home and in the ER vomited 2 times. In the ER, she was slightly hypoxic, saturating 88% on room air, on 2 liters, she is saturating fine. Currently resting comfortably and hemodynamically stable. Denies any fever, chills, no cough, no shortness of breath but has chest pain in the left side of the chest radiating to back and the pain is more with the deep breath. She has some mild headaches, mild dizziness, mild blurred vision, no earache, no runny nose, no sore throat. No loss of sense of smell or taste. Appetite is not that great, but no dysphagia. No rash. No diarrhea or constipation, no blood in the stool or black stools. No swelling in the legs, no rash. Ambulates okay. Admission Exam Per Admitting Provider PHYSICAL EXAMINATION: GENERAL: The patient is of moderate build, not in acute distress. VITAL SIGNS: Temperature 36.5, pulse 69, respiratory rate 16, blood pressure 137/67, oxygen 98% on room air. HEENT: No pallor, no icterus. Pupils equal, round, reactive to light. NECK: No JVD, no neck masses. CARDIOVASCULAR: S1, S2 heard, regular rate and rhythm, no murmur, no gallop. RESPIRATORY SYSTEM: Normal AP diameter. No accessory muscle use. No wheezing, no crackles. ABDOMEN: Soft, bowel sounds present, nontender. No distention. CENTRAL NERVOUS SYSTEM: Cranial nerves II-XII grossly intact. Nonfocal. EXTREMITIES: No edema, no erythema. Principal Diagnosis Noncardiac chest pain Supratherapeutic INR Anxiety disorder Pulmonary vascular congestion Discharge Data Allergies Allergy/AdvReac Type Severity Reaction Status Date / Time atropine Allergy Mild ITCHING Verified 07/09/20 02:15 AND HIVES Sulfa (Sulfonamide Allergy Mild MODERATE Verified 07/09/20 02:15 Antibiotics) RASH nickel Allergy Unknown RASH Verified 07/09/20 02:15 naloxone AdvReac Intermediate N/V, Verified 07/09/20 02:15 HALLUCINATIONS, EXTREME ANXIETY,JAW CLENCHING Consultations 07/09/20 04:11 ED Decision to Admit Stat 07/09/20 08:01 Consult Case Management - Discharge Planning Routine 07/09/20 10:10 Consult Cardiology Routine 07/10/20 12:55 Consult Psychiatry Routine 07/10/20 13:30 Consult Gastroenterology Routine Procedures Performed Operation Date: 07/10/20 09:30 Actual Procedures p Cath, Left with Cors and Vent - Hayden Molina MD s Cineradiography w/Routine Exam - Hayden Molina MD Chest CT:Right middle lobe, lingular and bilateral lower lobe airspace opacities consistent with atelectasis. No consolidation to suggest pneumonia. No acute findings within the chest. ECHO: Normal left ventricular wall thickness. Left ventricular wall motion is normal. Ventricular systolic function is normal. No regional wall motion abnormalities. Ejection fraction 60 to 65%. Grade 1 diastolic dysfunction. Cardiac Cath:Normal coronary arteries. Elevated intracardiac filling pressure CT ABD: 1. No bowel wall thickening or obstruction. 2. Mild bladder wall thickening which could be due to underdistention. Recommend correlation with urinalysis to exclude a cystitis. 3. Cholecystectomy. This likely accounts for the duct dilatation which remains unchanged. 4. Normal caliber appendix. 3 mm punctate density within the appendix may represent an appendicolith. Ordered Studies 07/09/20 00:19 CT abd pelvis IV con only Urgent 07/09/20 05:07 CT chest wo con Urgent 07/10/20 09:35 CL Cath Imgs for PACS use only Routine Hospital Course (1) Chest pressure: Patient is a 70 yr female who presents with not feeling well, nausea, vomiting, chest pain and was found to be hypoxic in the ER. Chest Pain: Likely non cardiac R/O ACS: Chest CT:Right middle lobe, lingular and bilateral lower lobe airspace opacities consistent with atelectasis. No consolidation to suggest pneumonia. No acute findings within the chest. ECHO: Normal left ventricular wall thickness. Left ventricular wall motion is normal. Ventricular systolic function is normal. No regional wall motion abnormalities. Ejection fraction 60 to 65%. Grade 1 diastolic dysfunction. S/P Cardiac Cath:Normal coronary arteries. Elevated intracardiac filling pressure Troponin X 3: Negative Continue aspirin 81 mg daily, atorvastatin Continue metoprolol 25 mg twice daily Appreciate cardiology input Coumadin transitioned to Eliquis Appreciated GI/Psychiatry input Plan for EGD as outpatient Added hydroxyzine for anxiety Supratherapeutic INR--Resolved Coumadin transitioned to Eliquis Nausea/vomiting/Abdominal discomfort UTI ruled out Urine culture: Negative Received Rocephin empirically Resolved Abnormal CT chest Hypoxia Pulmonary Vascular Congestion H/O Central Sleep Apnea Normal Procalcitonin CT as above Negative COVID PCR Continue BiPAP at bedtime for sleep apnea Titrated off of oxygen Grade I diastolic dysfunction and or Uncontrolled HTN likely contributing to vascular congestion Started on lasix 20mg 3 times per week as recommended by cardiology H/O PE Coumadin discontinued Started on Eliquis Depression: Anxiety: On Lexapro Vistaril PRN Appreciate Psychiatry Input Hypertension Continue lisinopril increased to 20mg daily Started on Metoprolol 25mg BID Hyperlipidemia On statin DM II Continue ISS, basal insulin Monitor BGs Hold p.o. meds for now Chronic back pain H/O back surgeries On pain pump H/O hypothyroidism Not on Levothyroxine TSH mildly elevated Free T4 Normal Needs repeat Thyroid function test as outpatient H/O Monoclonal Paraproteinemia Follows with Oncology as outpatient DVT Px: Lovenox SQ Code Status Full Code DISPOSITION: Plan to discharge home today Total Time Total Time Spent Total Time Spent (In Minutes): 45 minutes Total Time Includes: Examination of the Patient, Discharge Planning, Medication Reconciliation, Communication With Other Providers and Other Discharge Plan Discharge Items Patient Disposition: Home - Self-Care Reason For Visit: ILLNESS,N/V Discharge Diagnosis: Noncardiac chest pain Supratherapeutic INR Anxiety disorder Pulmonary vascular congestion Activity: Resume your previous activity Exercise/Sports: Gradually increase as tolerated Non-emergency contact: Primary Care Provider, Multimedia Educational Specialist and Gastroenterolog ist Call non-emergency contact if: you have any medication questions, your symptoms worsen, your pain is not controlled, your pain is worsening, your pain is unusual for you, your pain is concerning for you and you have a fever Follow-up/Referrals: Joe Hancock MD [Primary Care Provider] - 07/18/20 10:20 am (07/18/2020 10:20 AM Provider Joe Hancock MD [facility] ) Diet: Carb Consistent or DM2 Ambulatory Orders: Basic Metabolic Panel (Routine) Timeframe: 1 Week Location: Determined by Patient Ordered By: Rafael Espino Attending Provider Instructions: Follow-up with your primary care physician Dr. Hancock on July 18, 2020 at 10:20 AM Follow-up with your talent development manager for esophagogastroduodenoscopy as outpatient to rule out gastroparesis Follow-up with your regional facilities specialist for management of your sleep apnea Follow up with your Multimedia Educational Specialist as needed Follow-up with your psychiatrist as needed for anxiety management Medication Changes Complete antibiotic course doxycycline as prescribed You were started on Lasix 20 mg 3 times a week as recommended by your tar heel Your Coumadin is discontinued and you were started on apixaban 5 mg twice a day You were started on hydroxyzine as needed for anxiety Started on metoprolol 25 mg twice a day for better control of blood pressure Your lisinopril is increased to 20 mg daily Get Basic metabolic panel in 1 week and follow up with your Primary care physician with results Seek immediate medical attention if your symptoms reoccur or worsen Pending Studies at Discharge: No Stand-Alone Forms: [facility] EpiEP, Smoking Cessation Medications and DC Order Prescriptions: New doxycycline hyclate 100 mg Capsule 100 mg PO BID Qty: 5 RF: 0 lisinopril 20 mg Tablet 20 mg PO DAILY Qty: 30 RF: 1 furosemide 20 mg Tablet 20 mg PO Q3D@0900 Qty: 30 RF: 0 hydroxyzine HCl 10 mg Tablet 10 mg PO Q6H PRN (Reason: anxiety) Qty: 30 RF: 1 metoprolol tartrate 25 mg Tablet 25 mg PO BID Qty: 60 RF: 1 Eliquis 5 mg Tablet 5 mg PO BID Qty: 60 RF: 1 Continued atorvastatin 10 mg tablet 10 mg PO DAILY RF: 0 aspirin [Adult Low Dose Aspirin] 81 mg tablet,delayed release (DR/EC) 81 mg PO DAILY RF: 0 albuterol sulfate [Ventolin HFA] 90 mcg/actuation HFA aerosol inhaler 2 puffs INH Q4 PRN (Reason: wheezing) RF: 0 cholecalciferol (vitamin D3) 1,000 unit capsule 5,000 units PO DAILY RF: 0 insulin aspart U-100 100 unit/mL cartridge See Rx Instructions .ROUTE .COMPLEX RF: 0 insulin glargine 100 unit/mL (3 mL) insulin pen 14 units SQ HS RF: 0 lifitegrast 5 % dropperette 1 drops OPB BID RF: 0 sumatriptan succinate [Imitrex] 100 mg tablet 100 mg PO .use as directed PRN (Reason: migraine headache) RF: 0 metformin [Glucophage] 1,000 mg tablet 1,000 mg PO BID RF: 0 omeprazole 20 mg capsule,delayed release(DR/EC) 20 mg PO DAILY RF: 0 polyethylene glycol 3350 [Miralax] 17 gram/dose powder 17 gm PO DAILY RF: 0 multivitamin capsule 1 cap PO DAILY RF: 0 timolol maleate 0.5 % drops, once daily 1 drops OPL QAM RF: 0 magnesium oxide 400 mg capsule 400 mg PO DAILY RF: 0 escitalopram oxalate 20 mg tablet 20 mg PO DAILY RF: 0 prednisolone acetate 1 % drops,suspension 1 drp OPR QID RF: 0 promethazine 25 mg tablet 25 mg PO Q6 PRN (Reason: Nausea) RF: 0 artifi.tears(hypromellose)(PF) 0.3 % Drops 1 drp OPHTHALMIC (EYE) QID PRN (Reason: Dry Eye(S)) RF: 0 Synchromed Pump Refill See Rx Instructions .ROUTE .COMPLEX RF: 0 Discontinued lisinopril 10 mg tablet 10 mg PO DAILY RF: 0 warfarin 5 mg tablet 2.5 - 5 mg PO QPM RF: 0 Discharge Orders: Discharge Order (Routine); Ordered 07/11/20 Ordered By: Rafael Driver/Other Patient Handouts: Hydroxyzine capsules or tablets, Apixaban oral tablets, Metoprolol extended-release tablets, Doxycycline delayed-release tablets, Furosemide tablets Admission Data Admit Date/Time: 07/09/20 05:06 Attending Provider: Rafael Riley Admit Provider: Casey Ma Primary Care Provider: Joe Hancock Other Providers: Blas Loja ; Casey Ma ; Sebastian Mc ; Jaden Conde Other Interventions: Discharge Summary Assessment (RN) Last Done: 07/11/20 14:18
[2020-07-11 14:21] VITALS: O2SAT 98
--- NOTE | 2020-07-11 15:00 | Cardiology Progress Note ---
Date of Service July 11, 2020 Assessment & Plan (1) Chest pressure: Noncardiac etiology. Patient still require treatment for underlying hypertension Continue metoprolol, lisinopril intermittent diuretic dosages. Consider adding low-dose calcium channel titi, amlodipine to outpatient re gimen (2) Supratherapeutic INR: Outpatient records reviewed. Her most recent hematology visit had been in November 2020 as an outpatient. 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 In 2016 she was diagnosed with a pulmonary embolism was found to be heterozygous for the prothrombin gene mutation and has been on Coumadin in the interim. Her INR was > 5 on admission, now 1.6 after receiving 2.5 mg of IV vitamin K the evening of 07/09/2020. I called her outpatient pharmacy,[facility], her [id number] cost for a 30-day supply of Eliquis would be $30. I am not certain if she has a mail order option, and I this may need to be investigated further. In the meantime, I recommend DVT prophylaxis dose Lovenox 40 mg daily, pending determination as to whether or not further invasive procedures will be made, prior to reinitiating Coumadin or transitioning her to Eliquis. As above patient to be transitioned to Eliquis on discharge Admission and Anticipated Discharge Date Admission Date: July 09, 2020 Subjective Patient seen and examined, chart, medications, telemetry reviewed. No cardiac complaints this morning. No worsening shortness of breath chest pain. Blood pressure still running elevated at time Right radial access site healing well Results & Data ([place]) Vital Signs (Past 12 Hours) Vital Signs Temp Pulse Pulse Pulse Pulse Pulse Resp 07/11/20 14:18 36.6 C 67 19 07/11/20 13:22 79 71 72 07/11/20 11:56 36.6 C 67 19 07/11/20 07:55 36.5 C 67 18 07/11/20 07:34 63 07/11/20 04:09 36.8 C 59 L 18 Resp Resp Resp BP BP Pulse Ox Pulse Ox 07/11/20 14:18 175/80 H 155/78 H 98 07/11/20 13:22 22 20 19 90 07/11/20 11:56 155/78 H 98 07/11/20 07:55 176/81 H 93 07/11/20 07:34 08/13/20 04:09 175/80 H 94 Pulse Ox Pulse Ox 07/11/20 14:18 07/11/20 13:22 91 95 07/11/20 11:56 07/11/20 07:55 07/11/20 07:34 07/11/20 04:09 Laboratory Results Laboratory Results - last 24 hr 07/10/20 07/10/20 07/11/20 16:30 19:59 05:33 WBC RBC Hgb Hct MCV MCH MCHC RDW Std Deviation RDW Coeff of Angela Plt Count MPV PT 13.1 H INR 1.3 H Sodium Potassium Chloride Carbon Dioxide Anion Gap BUN Creatinine Est Cr Clr Drug Dosing Est GFR ( Amer) Est GFR (Non-Af Amer) BUN/Creatinine Ratio Glucose POC Glucose 170 H 148 H Calcium Magnesium Procalcitonin 07/11/20 07/11/20 07/11/20 05:33 05:33 05:33 WBC 6.92 RBC 3.64 L Hgb 10.0 L Hct 31.6 L MCV 86.8 MCH 27.5 MCHC 31.6 L RDW Std Deviation 55.6 H RDW Coeff of Angela 17.4 H Plt Count 461 H MPV 9.4 PT INR Sodium 143 Potassium 3.7 D Chloride 109 H Carbon Dioxide 30 Anion Gap 4.0 BUN 10 Creatinine 0.78 Est Cr Clr Drug Dosing 69.6 Est GFR ( Amer) 88.6 Est GFR (Non-Af Amer) 76.5 BUN/Creatinine Ratio 13.0 Glucose 134 H POC Glucose Calcium 8.3 L Magnesium 1.9 Procalcitonin 0.12 07/11/20 07/11/20 07:40 11:24 WBC RBC Hgb Hct MCV MCH MCHC RDW Std Deviation RDW Coeff of Angela Plt Count MPV PT INR Sodium Potassium Chloride Carbon Dioxide Anion Gap BUN Creatinine Est Cr Clr Drug Dosing Est GFR ( Amer) Est GFR (Non-Af Amer) BUN/Creatinine Ratio Glucose POC Glucose 126 H 173 H Calcium Magnesium Procalcitonin
[2020-07-11 15:09] VITALS: PULSE 69
[2020-07-11] MEDS ORDERED: APIXABAN 5 MG TABLET PO SCH (21:00)
== END 2020-07-11 15:08 | disposition home or self-care (01) ==
LOC: ED 23:48 → INTOOBSV 07-09 05:06 → 2W 07-09 05:06 → 2S 07-10 12:16